=== PATIENT | female | born 1970 | race Caucasian/White ===

== ENCOUNTER 2017-06-28 22:00 | Observation (INO) ==
[2017-06-28] MEDS ORDERED: Aspirin 81 MG TAB.CHEW PO ONE (22:24)
--- NOTE | 2017-06-28 22:27 | Emergency Department Note ---
Disposition Clinical Impression: Elevated blood pressure reading Chest pain Qualifiers: Chest pain type: unspecified Qualified Code(s): R07.9 - Chest pain, unspecified Disposition: Admitted As Inpatient Referrals: Tabitha Archibald CNP [Primary Care Provider] - Forms: ED Satisfaction Letter, Work/School Release General Adult HPI - General Chief complaint: ED General Medical Stated complaint: High BP Time Seen by Provider: 06/28/17 22:14 Source: patient, family Mode of arrival: ambulatory Limitations: no limitations Nursing Notes Reviewed: Yes Vital Signs Reviewed: Yes - History of Present Illness HPI Narrative: Patient is a 38-year-old female with a history of chronic low back pain who presents to the emergency department for the second time in the past 12 hours for complaints of gradually worsening epigastric and substernal chest pain that she describes as a tightness sensation, shortness of breath and diaphoresis. Patient has no prior cardiac history or risk factors, no prior history of PE or DVT. Patient was seen and evaluated earlier for palpitations and shortness of breath and cheeks. After taking prednisone. EKG and chest x-ray were within normal limits at that time her symptoms had completely resolved on presentation to the ED and she states that on discharge she was feeling great until after dinner this evening when she began having epigastric and substernal pain. This is different than what she was experiencing earlier today. Patient with significantly elevated blood pressure on arrival on reevaluation at bedside patient's blood pressure in both arms was consistent and 160s over 100s. Patient is not diaphoretic here she is not in any respiratory distress lungs are clear. Pain Scale: 5 - Related Data Previous Rx's Medication Instructions Recorded Meclizine HCl [Verticalm] 25 mg PO TID #20 tablet 12/19/15 Ondansetron ODT [Zofran ODT] 4 mg SL Q6HR #15 tab.rapdis 12/19/15 Allergies Allergy/AdvReac Type Severity Reaction Status Date / Time No Known Allergies Allergy Verified 06/28/17 15:12 All systems ED: reviewed and negative except as stated. 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 - Social History Smoking Status: Former smoker Smokeless Tobacco Status: No Alcohol use: Reports: none Drug use: Reports: none Physical Exam - General Limitations: no limitations General appearance: alert, in no apparent distress - Head Head exam: atraumatic, normocephalic, normal inspection - Eye Eye exam: Present: normal appearance, EOMI - ENT ENT exam: normal exam, normal oropharynx, mucous membranes moist - Neck Neck exam: Present: normal inspection, full ROM - Chest Chest inspection: Present: normal inspection, symmetric chest wall rise - Respiratory Respiratory exam: Present: normal lung sounds bilaterally. Absent: respiratory distress, wheezes, stridor, accessory muscle use, prolonged expiratory phase - Cardiovascular Cardiovascular exam: Present: regular rate, normal rhythm, normal heart sounds - Abdominal Exam Abdominal exam: Present: soft, Non-Tender, normal bowel sounds - Extremities Exam Extremities exam: Present: normal inspection. Absent: pedal edema - Back Exam Back exam: Present: normal inspection. Absent: CVA tenderness (R), CVA tenderness (L) - Neurological Exam Neurological exam: Present: alert, oriented X3, CN II-XII intact, normal gait, reflexes normal. Absent: motor sensory deficit - Psychiatric Psychiatric exam: Present: normal affect, normal mood - Skin Skin exam: Present: warm, dry, intact, normal color. Absent: diaphoresis Course Course Narrative: She is a 38-year-old white female who presents to the emergency department complaining of chest pain. Patient received aspirin and nitroglycerin 2 with resolution of pain. One to nitro paste was placed on the patient's chest. Initial troponin is negative chest x-rays unremarkable. Patient is willing to stay for further cardiac evaluation. Case was discussed with hospitalist at 11: 50 PM who accepted the patient for admission for further evaluation and management. On reevaluation patient remains pain-free at this time with improvement of her blood pressure. Vital Signs Temperature 98.0 F 06/28/17 22:02 Pulse Rate 82 06/28/17 22:02 Respiratory Rate 18 06/28/17 22:02 Blood Pressure 205/138 06/28/17 22:02 O2 Sat by Pulse Oximetry 95 06/28/17 22:02 Temperature 98.0 F 06/28/17 22:02 Pulse Rate 82 06/28/17 23:10 Respiratory Rate 18 06/28/17 22:02 Blood Pressure 155/93 06/28/17 23:10 O2 Sat by Pulse Oximetry 95 06/28/17 23:10 Oxygen Delivery Oxygen Delivery Room Air Medical Decision Making - Medical Records Medical records reviewed: Yes I reviewed the patient's medical records. - Lab Data Lab results reviewed: Yes I reviewed the patient's lab results. Result diagrams: 06/28/17 22:34 06/28/17 22:34 Lab Results 06/28/17 06/28/17 06/28/17 Range/Units 22:24 22:24 22:24 WBC (4.3-11.1) K/mcL RBC (3.82-4.97) M/mcL Hgb (11.5-15.4) g/dL Hct (35.3-44.9) % MCV (83.0-100.0) fL MCH (28.0-33.3) pg MCHC (31.6-35.5) g/dL RDW (11.5-14.5) % Plt Count (140-400) K/mcL MPV (9.4-12.4) fL Immature Gran % (0-4) % Seg Neutrophils % % Lymphocytes % % Monocytes % % Eosinophils % % Basophils % % Neutrophils # (1.6-8.9) K/mcL Lymphocytes # (0.6-4.6) K/mcL Monocytes # (0.0-1.3) K/mcL Eosinophils # (0.0-0.6) K/mcL Basophils # (0.0-0.2) K/mcL PT 11.5 (9.4-12.1) Seconds INR 1.1 APTT 33.9 (26.0-36.0) Seconds D-Dimer < 215 (0-500) ng/mLFEU Sodium (136-145) mEq/L Potassium (3.5-5.1) mEq/L Chloride (98-107) mEq/L Carbon Dioxide (23-29) mEq/L BUN (6-20) mg/dL Creatinine (0.60-1.20) mg/dL Est GFR ( Amer) (> 60) Est GFR (Non-Af Amer) (> 60) BUN/Creatinine Ratio (6-26) Glucose (70-105) mg/dL Calculated Osmolality (280-300) Calcium (8.6-10.3) mg/dL Troponin I (< 0.04) ng/mL B-Natriuretic Peptide 12 (Less than 100) pg/mL Lipase 10 L (11-82) Units/L 06/28/17 06/28/17 Range/Units 22:34 22:34 WBC 12.6 H (4.3-11.1) K/mcL RBC 4.87 (3.82-4.97) M/mcL Hgb 13.7 (11.5-15.4) g/dL Hct 41.4 (35.3-44.9) % MCV 85.0 (83.0-100.0) fL MCH 28.1 (28.0-33.3) pg MCHC 33.1 (31.6-35.5) g/dL RDW 15.0 H (11.5-14.5) % Plt Count 364 (140-400) K/mcL MPV 9.3 L (9.4-12.4) fL Immature Gran % 0.6 (0-4) % Seg Neutrophils % 77.2 % Lymphocytes % 18.3 % Monocytes % 3.7 % Eosinophils % 0.0 % Basophils % 0.2 % Neutrophils # 9.7 H (1.6-8.9) K/mcL Lymphocytes # 2.3 (0.6-4.6) K/mcL Monocytes # 0.5 (0.0-1.3) K/mcL Eosinophils # 0.0 (0.0-0.6) K/mcL Basophils # 0.0 (0.0-0.2) K/mcL PT (9.4-12.1) Seconds INR APTT (26.0-36.0) Seconds D-Dimer (0-500) ng/mLFEU Sodium 135 L (136-145) mEq/L Potassium 4.3 (3.5-5.1) mEq/L Chloride 104 (98-107) mEq/L Carbon Dioxide 22 L (23-29) mEq/L BUN 14 (6-20) mg/dL Creatinine 0.66 (0.60-1.20) mg/dL Est GFR ( Amer) > 60 (> 60) Est GFR (Non-Af Amer) > 60 (> 60) BUN/Creatinine Ratio 21 (6-26) Glucose 228 H (70-105) mg/dL Calculated Osmolality 288 (280-300) Calcium 9.6 (8.6-10.3) mg/dL Troponin I < 0.03 (< 0.04) ng/mL B-Natriuretic Peptide (Less than 100) pg/mL Lipase (11-82) Units/L - Radiology Data Radiology results reviewed: Yes I reviewed the patient's radiology results. Chest X-Ray 06/28/17 22:24 IMPRESSION: No acute cardiopulmonary abnormality. D/ / Ivan Ma / Ivan Ma Interpreting Provider: Ivan Ma - EKG Data EKG #1 EKG attestation: Yes I reviewed and interpreted this EKG. EKG results narrative: EKG shows a normal sinus rhythm at 75 bpm with no acute ST or T-wave changes appreciated. This is unchanged from prior EKG earlier today.
[2017-06-28] MEDS: Nitroglycerin 0.4 MG TAB.SUBL SL ONE ×2 (23:02→23:11)
[2017-06-28 23:03] LABS: Basophils % 0.2 %; Hematocrit 41.4 % (35.3-44.9); Hemoglobin 13.7 g/dL (11.5-15.4); Immature Granulocytes % 0.6 % (0-4); Lymphocytes # 2.3 K/mcL (0.6-4.6); Lymphocytes % 18.3 %; Mean Corpuscular HGB Conc 33.1 g/dL (31.6-35.5); Mean Corpuscular Hemoglobin 28.1 pg (28.0-33.3); Mean Platelet Volume 9.3 fL (9.4-12.4); Monocytes # 0.5 K/mcL (0.0-1.3); Monocytes % 3.7 %; Neutrophils # 9.7 K/mcL (1.6-8.9); Platelet Count 364 K/mcL (140-400); Red Blood Count 4.87 M/mcL (3.82-4.97); Segmented Neutrophils % 77.2 %
[2017-06-28 23:09] LABS: INR 1.1; Prothrombin Time 11.5 Seconds (9.4-12.1)
[2017-06-28 23:12] LABS: Activated Partial Thrombo Time 33.9 Seconds (26.0-36.0)
[2017-06-28 23:23] LABS: BUN/Creatinine Ratio 21 (6-26); Blood Urea Nitrogen 14 mg/dL (6-20); Calcium 9.6 mg/dL (8.6-10.3); Carbon Dioxide 22 mEq/L (23-29); Chloride 104 mEq/L (98-107); Glucose 228 mg/dL (70-105); Osmolality,Calculated 288 (280-300); Potassium 4.3 mEq/L (3.5-5.1); Sodium 135 mEq/L (136-145); Troponin I < 0.03 ng/mL (< 0.04); eGFR For African Americans > 60 (> 60); eGFR For Non-African Americans > 60 (> 60)
[2017-06-28 23:33] LABS: D-Dimer < 215 ng/mLFEU (0-500)
[2017-06-29] MEDS ORDERED: Nitroglycerin 0.4 MG TAB.SUBL SL PRN (00:35)
[2017-06-29] MEDS ORDERED: Naloxone 0.4 MG/ML INJ IVP PRN (00:36)
--- NOTE | 2017-06-29 00:43 | Internal Med History&Physical ---
Date of Encounter: 06/29/17 Time of Encounter: 00:39 Internal Medicine - H&P: HPI Chief complaint: Chest pain Admitted From: Emergency Dept Plans for Post Hospital Care: Home History of present illness: Ms. Mahmood is a 46 year old female with history of chronic back pain for last year from a previous fall who presented with worsening substernal/epigastric pain associated with shortness of breath and diaphoresis. This was her second presentation to the ED today. Initially came earlier in the day and complained of similar symptoms with work up coming back unrevealing. She was recently put on prednisone for back pain which she has had in the past and after her first dose she started having those feelings. She says she was never on this high of a dose of 50 mg before, however, however her PCP who usually gives a course of low dose prednisone taper decided to give her a short course of a higher dose prednison for 3 days only. This was done because the patient usually get "grouchy" on the longer course of prednisone. She was started at 50 mg prednisone by her PCP this time. Earlier in the day she was told to stop the prednisone and discharged from the ED. She came back with worsening of the above symptoms. She describes her chest pain as pressure with no radiation. She was noted to have elevated BP in the ed of 205/138. This came down with SL nitroglycerin x2 and her CP improved. She has no h/o HTN. By the time I was evaluating the patient she told me she was chest pain-free and her back pain was not significant. Her blood pressure was still elevated follows in the room and repeat check of that showed a systolic blood pressure 188. She tells me that usually her blood pressure is elevated when she is in pain although not this high. She measures it at home occasionally and for the most part it is usually in the 130s to 140s systolically. EKG unremarkable. CXR normal. The patient is a former heavy smoker and quit about 3 years ago and used to smoke about 1-1/2 pack a day since she was 12. She also has a brother who of an MA at the age of 44. Denies fever, chills, headache, blurry vision, nausea, vomiting, abdominal pain, urinary symptoms, or neurological symptoms. Past Med Surg Social Fam HX - Past Medical History Medical history: thyroid disease, other Psychiatric history: no psych history - Social History Smoking Status: Former smoker Smokeless Tobacco Status: No Alcohol use: none Drug use: none Internal Medicine - H&P: Meds Baclofen [Lioresal] 10 mg PO TID 06/29/17 [History] Gabapentin [Neurontin] 200 mg PO TID 06/29/17 [History] 3 Allergy/AdvReac Type Severity Reaction Status Date / Time No Known Allergies Allergy Verified 06/28/17 15:12 All Systems PM: A 10-system review of systems was performed and is negative for pertinent findings except as documented above in the HPI. Review of systems: All systems reviewed are negative except for as mentioned above - Constitutional Vitals: Temp Pulse Resp BP Pulse Ox 98.0 F 82 18 155/93 95 06/28/17 22:02 06/28/17 23:10 06/28/17 22:02 06/28/17 23:10 06/28/17 23:10 Exam: GEN: NAD HEENT: AT, NC, No cyanosis, oral mucosa is moist, No JVD Lymphatics: No lymphadenoapthy Eyes: Extrocular muscles intact, anicteric CVS:RRR. S1, S2, No m/r/g RESP: CTAB ABD: Soft, NT, ND, +BS EXT: No edema, No rashes, 2+ DP NEURO: Nonfocal, CN II-XII intact, No focal motor or sensory deficits Psych: Cooperative, Not anxious or depressed Internal Med - H&P Results - Labs CBC & Chem 7: 06/28/17 22:34 06/28/17 22:34 Labs: Short CBC 06/28/17 Range/Units 22:34 WBC 12.6 H (4.3-11.1) K/mcL Hgb 13.7 (11.5-15.4) g/dL Hct 41.4 (35.3-44.9) % Plt Count 364 (140-400) K/mcL Neutrophils # 9.7 H (1.6-8.9) K/mcL BMP 06/28/17 22:34 Sodium 135 L Potassium 4.3 Chloride 104 Carbon Dioxide 22 L BUN 14 Creatinine 0.66 Glucose 228 H Calcium 9.6 Cardiac Enzymes 06/28/17 Range/Units 22:34 Troponin I < 0.03 (< 0.04) ng/mL - Impressions ITS Impressions Chest X-Ray 06/28/17 22:24 IMPRESSION: No acute cardiopulmonary abnormality. D/ / Ivan Ma / Ivan Ma Interpreting Provider: Ivan aM - Assessment and plan (1) Chest pain Current Visit: Yes Status: Acute Assessment and plan: The patient chest pain may have been secondary to elevated BP. She possibly has undiagnosed HTN. Both of those improved with SL nitro. Will trend cardiac enzymes. check lipid panel. A1C, TSH. Stress test in am. Telemetry. Given ASA 324 mg in ED Qualifiers: Chest pain type: unspecified Qualified Code(s): R07.9 - Chest pain, unspecified (2) Elevated blood pressure reading Current Visit: Yes Status: Acute Assessment and plan: Blood pressure is elevated in the 200 systolically on admission. This came down somewhat and now after SL nitro but still elevated. Start HCTZ 12.5 mg. Possibly new HTN although could be due to pain versus being on steroids but she only received 1 dose of prednisone 50 mg. Hydralazine IV ordered PRN. (3) Leukocytosis Current Visit: Yes Status: Acute Assessment and plan: Possibly from being on steroids . No signs of infection. No abx. Qualifiers: Leukocytosis type: unspecified Qualified Code(s): D72.829 - Elevated white blood cell count, unspecified (4) DVT prophylaxis Current Visit: Yes Status: Acute Assessment and plan: SCDs - Time Spent With Patient Total time spent is greater than 50% in coordination of care (as documented) at patient's floor/unit and/or counseling patient:
[2017-06-29] MEDS ORDERED: hydroCHLOROthiazide 25 MG TABLET PO SCH (01:00)
[2017-06-29 01:10] LABS: Chol/HDL Ratio 3.5 (0-4.9); Cholesterol 219 mg/dL (< 200); HDL Cholesterol 62 mg/dL (40-59); LDL Cholesterol,Calculated 123 mg/dL (0-99); Triglycerides 171 mg/dL (< 150)
[2017-06-29] MEDS ORDERED: Regadenoson 0.4 MG/5 ML SYRINGE IVP ONE (06:08)
[2017-06-29 11:09] LABS: Troponin I < 0.03 ng/mL (< 0.04)
[2017-06-29 11:22] LABS: Estimated Average Glucose 174 mg/dl; Hemoglobin A1C 7.7 %
[2017-06-29] MEDS: Baclofen 10 MG TABLET PO SCH ×2 (11:30→13:21)
[2017-06-29] MEDS: Acetaminophen 325 MG TABLET PO PRN ×2 (11:34→17:33)
[2017-06-29] MEDS: Gabapentin 100 MG CAPSULE PO SCH ×2 (11:35→14:50)
[2017-06-29 13:24] LABS: Triiodothyronine (T3) Free 3.48 pg/mL (2.50-3.90)
[2017-06-29 13:28] LABS: Triiodothyronine (T3) Total 0.86 ng/mL (0.87-1.78)
--- NOTE | 2017-06-29 14:10 | Event Note ---
Date of Encounter: 06/29/17 Time of Encounter: 14:10 Patient is a 46y/o female with PMH of thyroid disease, chronic back pain who was admitted for management of chest pain, and elevated BP. She was found to have leukocytosis but reported of being on PO Prednisone. Denies any dysuria, fever, or chills Pt was seen and examined with present at bedside. Pt denies of any chest pain or having history of hypertension. She reports of being compliant with her home medications however noted to have thyroid studies consistent with not appropriately controlled hypothyroidism. Pt also found to have HbA1C of 7.7 and is found to be a new diagnosis of diabetes Will start home dose of levothyroxine once verified f/u 2D echo sliding scale insulin algorithm, ADA diet, monitor FS and BG increased to HCTZ 25mg PO qd Hydralazine 10mg IV q6h PRN SBP>160 stress test negative for ischemic perfusion defect will closely monitor labs and vitals
[2017-06-29] MEDS ORDERED: *HR* Dextrose 50 % in Water (Syg) 50 ML SYRINGE IVP PRN (14:19)
[2017-06-29] MEDS ORDERED: Dextrose Gel 15 GM/37.5 ML TUBE PO PRN ×2 (14:19)
[2017-06-29] MEDS ORDERED: D5% in Water 1,000 ML IVC PRN (14:19)
[2017-06-29] MEDS ORDERED: hydroCHLOROthiazide 25 MG TABLET PO ONE (14:19)
[2017-06-29] MEDS: Insulin LISPRO 300 UNITS/3 ML VIAL SQ SCH (17:33)
[2017-06-29] MEDS: Ondansetron 4 MG/2 ML VIAL IVP PRN ×2 (17:33→22:43)
[2017-06-29] MEDS: *HR* Heparin 5,000 UNIT/ML VIAL SQ SCH (17:34)
[2017-06-29] MEDS ORDERED: Insulin LISPRO 300 UNITS/3 ML VIAL SQ SCH (21:00)
[2017-06-29] MEDS ORDERED: Ketorolac 15 MG/ML VIAL IVP ONE (22:30)
[2017-06-30] MEDS: Gabapentin 100 MG CAPSULE PO SCH ×2 (01:05→08:14)
[2017-06-30] MEDS: Baclofen 10 MG TABLET PO SCH ×2 (01:05→08:14)
[2017-06-30 01:32] LABS: Basophils % 0.2 %; Eosinophils % 0.3 %; Hematocrit 43.5 % (35.3-44.9); Hemoglobin 14.4 g/dL (11.5-15.4); Immature Granulocytes % 0.5 % (0-4); Lymphocytes # 3.2 K/mcL (0.6-4.6); Lymphocytes % 26.6 %; Mean Corpuscular HGB Conc 33.1 g/dL (31.6-35.5); Mean Corpuscular Hemoglobin 28.1 pg (28.0-33.3); Mean Corpuscular Volume 84.8 fL (83.0-100.0); Mean Platelet Volume 9.5 fL (9.4-12.4); Monocytes # 0.8 K/mcL (0.0-1.3); Monocytes % 6.4 %; Neutrophils # 7.9 K/mcL (1.6-8.9); Platelet Count 390 K/mcL (140-400); Red Blood Count 5.13 M/mcL (3.82-4.97); Red Cell Distribution Width 15.5 % (11.5-14.5)
[2017-06-30 02:27] LABS: BUN/Creatinine Ratio 19 (6-26); Blood Urea Nitrogen 14 mg/dL (6-20); Calcium 9.5 mg/dL (8.6-10.3); Carbon Dioxide 24 mEq/L (23-29); Chloride 101 mEq/L (98-107); Glucose 158 mg/dL (70-105); Magnesium 2.3 mg/dL (1.6-2.6); Osmolality,Calculated 284 (280-300); Potassium 3.8 mEq/L (3.5-5.1); Sodium 135 mEq/L (136-145); eGFR For African Americans > 60 (> 60); eGFR For Non-African Americans > 60 (> 60)
[2017-06-30] MEDS: Ondansetron 4 MG/2 ML VIAL IVP PRN (05:12)
[2017-06-30] MEDS: Acetaminophen 325 MG TABLET PO PRN ×2 (05:12→13:14)
[2017-06-30] MEDS: *HR* Heparin 5,000 UNIT/ML VIAL SQ SCH (05:13)
[2017-06-30] MEDS ORDERED: Levothyroxine 25 MCG TABLET PO SCH (06:30)
[2017-06-30] MEDS: Insulin LISPRO 300 UNITS/3 ML VIAL SQ SCH ×2 (08:16→11:09)
[2017-06-30] MEDS ORDERED: hydroCHLOROthiazide 25 MG TABLET PO SCH (09:00)
[2017-06-30 11:22] VITALS: BP 138/80
--- NOTE | 2017-06-30 13:14 | Discharge Summary ---
- NOTES TO OUTPATIENT PROVIDER Notes to Outpatient Provider: Pt was diagnosed with DM and HTN during this hospitalization. She is started on Metformin 500mg twice a day and HCTZ 25mg qd , Lisinopril 5mg PO Qd for hypertension. Please adjust medications as needed. Please adjust pt's levothyroxine dose given her thyroid function tests (TSH >9) Orders not resulted at time of discharge: Pending orders 06/29/17 08:00 NM jarrod perf SPECT multi [NM] Routine 06/29/17 08:46 Urinalysis Reflex Cult & Micro [URIN] Stat Date of Encounter: 06/30/17 Time of Encounter: 13:11 - Discharge Diagnosis (1) Chest pain Priority: Primary Status: Resolved Qualifiers: Chest pain type: unspecified Qualified Code(s): R07.9 - Chest pain, unspecified (2) Elevated blood pressure reading Priority: Primary Status: Acute (3) DVT prophylaxis Priority: Secondary Status: Acute (4) Leukocytosis Priority: Secondary Status: Acute Qualifiers: Leukocytosis type: unspecified Qualified Code(s): D72.829 - Elevated white blood cell count, unspecified (5) Diabetes mellitus Priority: Secondary Status: Acute Qualifiers: Diabetes mellitus type: type 2 Diabetes mellitus 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 Mahmood is a 46 year old female with PMH Of hypothyroidism who was admitted for management of chest pain and was found to have elevated BP and DM. She underwent nuclear stress test that was negative for any ischemic perfusion defect. She was started on HCTZ/Lisinopril for BP control. She was started on sliding scale insulin algorithm and diabetic education was provided. Pt currently reports of resolution of her chest pain and is medically stable for discharge. She will be discharged to home with antihypertensive medications along with Metformin. She is to follow up with PCP after discharge. Pt demonstrates understanding of her diagnosis and agrees with [facility] discharge care and plan. She was taught how to check her fingerstick glucose at home and demonstrates understanding. Discharge discussed with: patient, nurse - Time Spent with Patient Total time spent providing and/or coordinating discharge services: Greater than 30 minutes - Discharge Medications Prescriptions: metFORMIN [Glucophage] 500 mg PO BIDWM #60 tablet Home Medications: Baclofen [Lioresal] 10 mg PO TID 06/29/17 [History] Gabapentin [Neurontin] 200 mg PO TID 06/29/17 [History] Levothyroxine Sodium 100 mcg PO DAILY 06/29/17 [History] Meloxicam 15 mg PO DAILY 06/29/17 [History] predniSONE [Prednisone] 50 mg PO DAILY 06/29/17 [History] Lisinopril [Zestril] 5 mg PO DAILY tablet 06/30/17 [Rx] hydroCHLOROthiazide [Hydrochlorothiazide] 25 mg PO DAILY tablet 06/30/17 [Rx] metFORMIN [Glucophage] 500 mg PO BIDWM #60 tablet 06/30/17 [Rx] Allergies/Adverse Reactions: 3 Allergy/AdvReac Type Severity Reaction Status Date / Time No Known Allergies Allergy Verified 06/28/17 15:12 Date of admission: 06/29/17 00:35 Primary care physician: Tabitha Archibald CNP Discharging clinician: Angely Bhatt Anticipated date of discharge: 06/30/17 - Constitutional Vitals: Temp Pulse Resp BP Pulse Ox 97.8 F 79 17 138/80 97 06/30/17 11:04 06/30/17 11:04 06/30/17 11:04 06/30/17 11:22 06/30/17 11:04 General appearance: Present: A&O X 3, no acute distress, obese - Head Head exam: Present: atraumatic, normocephalic - Eye Eye exam: Present: conjuntiva pink, sclera anicteric - Respiratory Respiratory exam: Present: CTAB. Absent: respiratory distress, wheezes, tachypnea - Cardiovascular Cardiovascular exam: Present: RRR, +S1, +S2. Absent: diastolic murmur, gallop, rubs, systolic murmur - GI/Abdominal GI/Abdominal exam: Present: normal bowel sounds, soft, no peritoneal signs. Absent: distended, tenderness - Neurological Exam Neurological exam: Present: oriented X3 - Psychiatric Psychiatric exam: Present: normal affect, normal mood - Patient Status Disposition: Home, Self-Care Condition: Good Functional capacity at discharge: independent ambulation Overall status at discharge: patient is back to baseline - Discharge Instructions Instructions: How to Check Your Blood Sugar (DC), Diabetes Mellitus Type 2 in Adults (DC), Meal Planning with Diabetes Exchanges (DC) Follow Up With: Tabitha Archibald CNP [Primary Care Provider] - (web request sent on 06/29/17) Additional Instructions: Please follow up with your primary care physician within five days after your discharge from the hospital. Your home medications have been changed as follows: 1. Lisinopril 5mg once a day has been added 2. Hydrochlorothiazide 25mg once a day has been added 3. Metformin 500mg twice a day Please closely monitor your blood pressure at home. Please check your fingerstick glucose at home (three times a day and take these logs with you to your pcp;s appointment, check fingerstick fasting in the morning, once two hours after a meal ,and before bedtime) Please ask your PCP about adjusting your thyroid medication given your thyroid function tests. Resume all other home medications as prescribed by your primary care physician. All your prescriptions have been called to [facility] on [facility] including glucometer, lancets, test strips, alcohol pads. - Diet and Activity Activity: resume usual activities as tolerated Diet: diabetic diet, low fat, low cholesterol
--- NOTE | 2017-06-30 13:25 | Electrocardiograph Report ---
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
[2017-06-30] MEDS ORDERED: hydroCHLOROthiazide 25 MG TABLET PO ONE (13:58)
== END 2017-06-30 14:24 | disposition home or self-care (01) ==
LOC: EMEROO 22:00 → 2ANU 22:00
PROVIDERS: ADMIT Family Medicine; ATTEND Internal Medicine

== ENCOUNTER 2017-07-02 08:41 | Inpatient (IN) ==
[2017-07-02] MEDS ORDERED: 0.9 % Sodium Chloride 500 ML IVC ONE (09:01)
--- NOTE | 2017-07-02 09:05 | Emergency Department Note ---
Disposition Clinical Impression: Unstable angina, Acute electrocardiogram changes Disposition: Admitted As Inpatient Condition: Fair Referrals: Tabitha Archibald CNP [Primary Care Provider] - Forms: ED Satisfaction Letter Time of Disposition: 11:51 Chest Pain HPI - General Chief Complaint: ED Shortness of Breath/Dyspnea Stated Complaint: TAD Time Seen by Provider: 07/02/17 09:00 Source: patient Mode of arrival: wheelchair Limitations: no limitations Vital Signs Reviewed: Yes Nursing Notes Reviewed: Yes - History of Present Illness HPI Narrative: Patient presents to the ED with a chief complaint of chest pain. Patient has a newly diagnosed diabetic. As of this weekend and was admitted and started on metformin and hydrochlorothiazide for hypertension. States that she went home 2 days ago and started feeling unwell last night with some chest pressure and heaviness that in her central chest, nonradiating. No diaphoresis , but she has been having chills. No fever. States that she feels very anxious. Some nausea but no vomiting. Denying any abdominal pain, but states that the pressure is in her epigastrium and pushing into her chest. No back pain, numbness or weakness in her extremities. No fever. Severity scale (1-10): 4 - Related Data Home Medications Medication Instructions Recorded Confirmed Baclofen [Lioresal] 10 mg PO TID 06/29/17 07/02/17 Gabapentin [Neurontin] 200 mg PO TID 06/29/17 07/02/17 Levothyroxine Sodium 100 mcg PO DAILY 06/29/17 07/02/17 Previous Rx's Medication Instructions Recorded Lisinopril [Zestril] 5 mg PO DAILY tablet 06/30/17 hydroCHLOROthiazide 25 mg PO DAILY tablet 06/30/17 [Hydrochlorothiazide] metFORMIN [Glucophage] 500 mg PO BIDWM #60 tablet 06/30/17 Allergies Allergy/AdvReac Type Severity Reaction Status Date / Time No Known Allergies Allergy Verified 07/02/17 09:28 Review of Systems: As reviewed in my history of present illness, otherwise negative Constitutional: Reports: as per HPI Eyes: Reports: as per HPI ENT ED: Reports: as per HPI Chest Pain PMH - Past Medical History Medical history: Reports: thyroid disease, other Psychiatric history: Reports: no psych history 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 - Social History Smoking Status: Former smoker Alcohol use: Reports: none Drug use: Reports: none Physical Exam - General Limitations: no limitations General appearance: alert, in no apparent distress, anxious - Head Head exam: atraumatic, normocephalic, normal inspection - Eye Eye exam: Present: normal appearance, PERRL, EOMI - ENT ENT exam: normal exam, normal oropharynx, mucous membranes moist - Respiratory Respiratory exam: Present: normal lung sounds bilaterally - Cardiovascular Cardiovascular exam: Present: normal rhythm, tachycardia, normal heart sounds - Abdominal Exam Abdominal exam: Present: soft, Non-Tender. Absent: tenderness, distention, guarding, rebound, rigidity - Extremities Exam Extremities exam: Present: normal inspection, full ROM, normal capillary refill. Absent: tenderness, pedal edema - Neurological Exam Neurological exam: Present: alert, oriented X3 - Psychiatric Psychiatric exam: Present: anxious - Skin Skin exam: Present: warm, dry, intact, normal color Course - Reevaluation(s) Reevaluation #1: Admitted to the hospital service. CTA was negative for PE. Patient is chest pain-free at this time, but due to her EKG changes, we will go and start her on a heparin drip for unstable angina. Patient will likely get a heart catheter later today. Time: 11:50 - Consultations Consultation #1: I spoke with the on-call sales utility representative, Dr. France. We reviewed the EKG together over the phone. After faxing it to him and he did not think that this met STEMI criteria. However, he was concerned, as we are that she is having significant EKG changes. Recommended starting cardiac workup. She has no contraindications to heparinization, so we will start that as well. After we get a chest x-ray. Patient will be admitted to the hospital. If her pain changes at all or she becomes unstable. We will repeat EKG and likely activate the catheter lab. Time: 09:03 Vital Signs Temperature 97.6 F 07/02/17 08:42 Pulse Rate 110 07/02/17 08:42 Respiratory Rate 16 07/02/17 08:42 Blood Pressure 134/93 07/02/17 08:42 O2 Sat by Pulse Oximetry 96 07/02/17 08:42 Temperature 97.6 F 07/02/17 08:42 Pulse Rate 86 07/02/17 11:09 Respiratory Rate 16 07/02/17 11:09 Blood Pressure 151/99 07/02/17 11:09 O2 Sat by Pulse Oximetry 97 07/02/17 11:09 Oxygen Delivery Oxygen Delivery Room Air Chest Pain - Medical Records Medical records reviewed: Yes I reviewed the patient's medical records. - Lab Data Lab results reviewed: Yes I reviewed the patient's lab results. Result diagrams: 07/02/17 09:25 07/02/17 09:25 Lab Results 07/02/17 07/02/17 07/02/17 Range/Units 09:25 09:25 09:25 WBC 11.1 (4.3-11.1) K/mcL RBC 5.66 H (3.82-4.97) M/mcL Hgb 15.6 H (11.5-15.4) g/dL Hct 46.6 H (35.3-44.9) % MCV 82.3 L (83.0-100.0) fL MCH 27.6 L (28.0-33.3) pg MCHC 33.5 (31.6-35.5) g/dL RDW 14.7 H (11.5-14.5) % Plt Count 420 H (140-400) K/mcL MPV 9.3 L (9.4-12.4) fL Immature Gran % 0.4 (0-4) % Seg Neutrophils % 59.8 % Lymphocytes % 32.3 % Monocytes % 6.9 % Eosinophils % 0.3 % Basophils % 0.3 % Neutrophils # 6.7 (1.6-8.9) K/mcL Lymphocytes # 3.6 (0.6-4.6) K/mcL Monocytes # 0.8 (0.0-1.3) K/mcL Eosinophils # 0.0 (0.0-0.6) K/mcL Basophils # 0.0 (0.0-0.2) K/mcL PT 12.6 H (9.4-12.1) Seconds INR 1.2 APTT 34.0 (26.0-36.0) Seconds Sodium (136-145) mEq/L Potassium (3.5-5.1) mEq/L Chloride (98-107) mEq/L Carbon Dioxide (23-29) mEq/L BUN (6-20) mg/dL Creatinine (0.60-1.20) mg/dL Est GFR ( Amer) (> 60) Est GFR (Non-Af Amer) (> 60) BUN/Creatinine Ratio (6-26) Glucose (70-105) mg/dL Calculated Osmolality (280-300) Calcium (8.6-10.3) mg/dL Troponin I (< 0.04) ng/mL B-Natriuretic Peptide 7 (Less than 100) pg/mL Urine Color (Yellow) Urine Clarity (Clear) Urine pH (5.0-8.0) pH Units Ur Specific [place] (1.010-1.025) Urine Protein (Neg-Trace) mg/dL Urine Glucose (UA) (Normal) mg/dL Urine Ketones (Negative) mg/dL Urine Blood (Negative) Urine Nitrite (Negative) Urine Bilirubin (Negative) Urine Urobilinogen (Normal) mg/dL Ur Leukocyte Esterase (Negative) Urine Microscopic RBC (0-3) per hpf Urine Microscopic WBC (0-3) per hpf Ur Squamous Epith Cells (None-Few) per lpf Urine Bacteria (None-Few) per hpf Hyaline Casts (None-Few) per lpf Ur Culture Indicated? (NO) Urine Test (Negative) 07/02/17 07/02/17 07/02/17 Range/Units 09:25 09:38 09:38 WBC (4.3-11.1) K/mcL RBC (3.82-4.97) M/mcL Hgb (11.5-15.4) g/dL Hct (35.3-44.9) % MCV (83.0-100.0) fL MCH (28.0-33.3) pg MCHC (31.6-35.5) g/dL RDW (11.5-14.5) % Plt Count (140-400) K/mcL MPV (9.4-12.4) fL Immature Gran % (0-4) % Seg Neutrophils % % Lymphocytes % % Monocytes % % Eosinophils % % Basophils % % Neutrophils # (1.6-8.9) K/mcL Lymphocytes # (0.6-4.6) K/mcL Monocytes # (0.0-1.3) K/mcL Eosinophils # (0.0-0.6) K/mcL Basophils # (0.0-0.2) K/mcL PT (9.4-12.1) Seconds INR APTT (26.0-36.0) Seconds Sodium 130 L (136-145) mEq/L Potassium 3.5 (3.5-5.1) mEq/L Chloride 96 L (98-107) mEq/L Carbon Dioxide 21 L (23-29) mEq/L BUN 24 H (6-20) mg/dL Creatinine 0.74 (0.60-1.20) mg/dL Est GFR ( Amer) > 60 (> 60) Est GFR (Non-Af Amer) > 60 (> 60) BUN/Creatinine Ratio 32 H (6-26) Glucose 165 H (70-105) mg/dL Calculated Osmolality 278 L (280-300) Calcium 9.9 (8.6-10.3) mg/dL Troponin I < 0.03 (< 0.04) ng/mL B-Natriuretic Peptide (Less than 100) pg/mL Urine Color Yellow (Yellow) Urine Clarity Clear (Clear) Urine pH 6.0 (5.0-8.0) pH Units Ur Specific [place] 1.019 (1.010-1.025) Urine Protein Trace (Neg-Trace) mg/dL Urine Glucose (UA) Normal (Normal) mg/dL Urine Ketones 15 H (Negative) mg/dL Urine Blood Trace H (Negative) Urine Nitrite Negative (Negative) Urine Bilirubin Negative (Negative) Urine Urobilinogen Normal (Normal) mg/dL Ur Leukocyte Esterase Negative (Negative) Urine Microscopic RBC 0-3 (0-3) per hpf Urine Microscopic WBC 0-3 (0-3) per hpf Ur Squamous Epith Cells Many H (None-Few) per lpf Urine Bacteria None Seen (None-Few) per hpf Hyaline Casts None Seen (None-Few) per lpf Ur Culture Indicated? NO (NO) Urine Test Negative (Negative) - Radiology Data Radiology results reviewed: Yes I reviewed the patient's radiology results. - EKG Data EKG attestation: Yes I reviewed and interpreted this EKG. EKG results narrative: Sinus rhythm, rate 100, DE interval 344, QRS 105, QTC 403, normal axis, [address] segment elevation in aVR, ST segment depression in lead 2, 3, mildly in V3, V4, V5 and V6. Does not meet STEMI criteria at this time, but will page sales utility representative Critical Care Time Critical Care Time: Yes Attestation: I personally spent ___30___ minutes devoted to the care of this critically ill patient. This time excludes the time for billable procedures.
[2017-07-02 09:36] LABS: Basophils % 0.3 %; Eosinophils % 0.3 %; Hematocrit 46.6 % (35.3-44.9); Hemoglobin 15.6 g/dL (11.5-15.4); Immature Granulocytes % 0.4 % (0-4); Lymphocytes # 3.6 K/mcL (0.6-4.6); Lymphocytes % 32.3 %; Mean Corpuscular HGB Conc 33.5 g/dL (31.6-35.5); Mean Corpuscular Hemoglobin 27.6 pg (28.0-33.3); Mean Corpuscular Volume 82.3 fL (83.0-100.0); Mean Platelet Volume 9.3 fL (9.4-12.4); Monocytes # 0.8 K/mcL (0.0-1.3); Monocytes % 6.9 %; Neutrophils # 6.7 K/mcL (1.6-8.9); Platelet Count 420 K/mcL (140-400); Red Blood Count 5.66 M/mcL (3.82-4.97); Red Cell Distribution Width 14.7 % (11.5-14.5); Segmented Neutrophils % 59.8 %
[2017-07-02 09:41] LABS: INR 1.2; Prothrombin Time 12.6 Seconds (9.4-12.1)
[2017-07-02 09:52] LABS: Bilirubin,Urine Negative (Negative); Blood,Urine Trace (Negative); Clarity,Urine Clear (Clear); Color,Urine Yellow (Yellow); Glucose,Urine (UA) Normal (Normal); Ketones,Urine 15 mg/dL (Negative); Leukocyte Esterase,Urine Negative (Negative); Nitrite,Urine Negative (Negative); Protein,Urine Trace mg/dL (Neg-Trace); Specific Gravity,Urine 1.019 (1.010-1.025); Urobilinogen,Urine Normal (Normal)
[2017-07-02 09:54] LABS: Bacteria,Urine None Seen per hpf (None-Few); Hyaline Casts,Urine None Seen per lpf (None-Few); RBC,Urine 0-3 per hpf (0-3); Squamous Epithelial Cell,Urine Many per lpf (None-Few); WBC,Urine 0-3 per hpf (0-3)
[2017-07-02 09:58] LABS: Troponin I < 0.03 ng/mL (< 0.04)
[2017-07-02 10:08] LABS: BUN/Creatinine Ratio 32 (6-26); Blood Urea Nitrogen 24 mg/dL (6-20); Calcium 9.9 mg/dL (8.6-10.3); Carbon Dioxide 21 mEq/L (23-29); Chloride 96 mEq/L (98-107); Glucose 165 mg/dL (70-105); Osmolality,Calculated 278 (280-300); Potassium 3.5 mEq/L (3.5-5.1); Sodium 130 mEq/L (136-145); eGFR For African Americans > 60 (> 60); eGFR For Non-African Americans > 60 (> 60)
[2017-07-02] MEDS ORDERED: ISOVUE-370 200 ML INFUS..BTL IV ONE ×4 (10:30→15:30)
[2017-07-02] MEDS ORDERED: Heparin 1,000 UNITS/500 mL 500 ML ONE ×2 (10:30→12:54)
[2017-07-02] MEDS ORDERED: 0.9 % Sodium Chloride 1,000 ML ONE ×3 (10:30→13:28)
[2017-07-02] MEDS ORDERED: Nitroglycerin 1,000 MCG/10 ML VIAL IV ONE ×2 (10:30→12:56)
[2017-07-02] MEDS ORDERED: *HR* Heparin 10,000 UNIT/10 ML VIAL ONE ×2 (10:30→12:55)
[2017-07-02] MEDS ORDERED: *HR* LORazepam 2 MG/ML VIAL IVP ONE (10:35)
--- NOTE | 2017-07-02 11:51 | Emergency Department Note ---
Disposition Clinical Impression: Unstable angina, Acute electrocardiogram changes Disposition: Admitted As Inpatient Condition: Fair General Adult HPI - General Chief complaint: ED Shortness of Breath/Dyspnea Stated complaint: TAD Time Seen by Provider: 07/02/17 09:00 Source: patient Mode of arrival: wheelchair Limitations: no limitations Nursing Notes Reviewed: Yes Vital Signs Reviewed: Yes - History of Present Illness Pain Scale: 4 - Related Data Home Medications Medication Instructions Recorded Confirmed Baclofen [Lioresal] 10 mg PO TID 06/29/17 07/02/17 Gabapentin [Neurontin] 200 mg PO TID 06/29/17 07/02/17 Levothyroxine Sodium 100 mcg PO DAILY 06/29/17 07/02/17 Previous Rx's Medication Instructions Recorded Lisinopril [Zestril] 5 mg PO DAILY tablet 06/30/17 hydroCHLOROthiazide 25 mg PO DAILY tablet 06/30/17 [Hydrochlorothiazide] metFORMIN [Glucophage] 500 mg PO BIDWM #60 tablet 06/30/17 Allergies Allergy/AdvReac Type Severity Reaction Status Date / Time No Known Allergies Allergy Verified 07/02/17 09:28 Constitutional: Reports: as per HPI Eyes: Reports: as per HPI ENT ED: Reports: as per HPI Past Medical History - Past Medical History Medical history: Reports: thyroid disease, other Psychiatric history: Reports: no psych history 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 - Social History Smoking Status: Former smoker Smokeless Tobacco Status: No Alcohol use: Reports: none Drug use: Reports: none Physical Exam - General Limitations: no limitations General appearance: alert, in no apparent distress, anxious Course Vital Signs Temperature 97.6 F 07/02/17 08:42 Pulse Rate 110 07/02/17 08:42 Respiratory Rate 16 07/02/17 08:42 Blood Pressure 134/93 07/02/17 08:42 O2 Sat by Pulse Oximetry 96 07/02/17 08:42 Temperature 97.6 F 07/02/17 08:42 Pulse Rate 78 07/02/17 16:17 Respiratory Rate 18 07/02/17 16:17 Blood Pressure 129/109 07/02/17 16:17 O2 Sat by Pulse Oximetry 97 07/02/17 16:17 Oxygen Delivery Oxygen Delivery Room Air Medical Decision Making - Lab Data Result diagrams: 07/02/17 09:25 07/02/17 09:25 Lab Results 07/02/17 07/02/17 07/02/17 Range/Units 09:25 09:25 09:25 WBC 11.1 (4.3-11.1) K/mcL RBC 5.66 H (3.82-4.97) M/mcL Hgb 15.6 H (11.5-15.4) g/dL Hct 46.6 H (35.3-44.9) % MCV 82.3 L (83.0-100.0) fL MCH 27.6 L (28.0-33.3) pg MCHC 33.5 (31.6-35.5) g/dL RDW 14.7 H (11.5-14.5) % Plt Count 420 H (140-400) K/mcL MPV 9.3 L (9.4-12.4) fL Immature Gran % 0.4 (0-4) % Seg Neutrophils % 59.8 % Lymphocytes % 32.3 % Monocytes % 6.9 % Eosinophils % 0.3 % Basophils % 0.3 % Neutrophils # 6.7 (1.6-8.9) K/mcL Lymphocytes # 3.6 (0.6-4.6) K/mcL Monocytes # 0.8 (0.0-1.3) K/mcL Eosinophils # 0.0 (0.0-0.6) K/mcL Basophils # 0.0 (0.0-0.2) K/mcL PT 12.6 H (9.4-12.1) Seconds INR 1.2 APTT 34.0 (26.0-36.0) Seconds Sodium (136-145) mEq/L Potassium (3.5-5.1) mEq/L Chloride (98-107) mEq/L Carbon Dioxide (23-29) mEq/L BUN (6-20) mg/dL Creatinine (0.60-1.20) mg/dL Est GFR ( Amer) (> 60) Est GFR (Non-Af Amer) (> 60) BUN/Creatinine Ratio (6-26) Glucose (70-105) mg/dL Calculated Osmolality (280-300) Calcium (8.6-10.3) mg/dL Troponin I (< 0.04) ng/mL B-Natriuretic Peptide 7 (Less than 100) pg/mL Urine Color (Yellow) Urine Clarity (Clear) Urine pH (5.0-8.0) pH Units Ur Specific [place] (1.010-1.025) Urine Protein (Neg-Trace) mg/dL Urine Glucose (UA) (Normal) mg/dL Urine Ketones (Negative) mg/dL Urine Blood (Negative) Urine Nitrite (Negative) Urine Bilirubin (Negative) Urine Urobilinogen (Normal) mg/dL Ur Leukocyte Esterase (Negative) Urine Microscopic RBC (0-3) per hpf Urine Microscopic WBC (0-3) per hpf Ur Squamous Epith Cells (None-Few) per lpf Urine Bacteria (None-Few) per hpf Hyaline Casts (None-Few) per lpf Ur Culture Indicated? (NO) Urine Test (Negative) 07/02/17 07/02/17 07/02/17 Range/Units 09:25 09:38 09:38 WBC (4.3-11.1) K/mcL RBC (3.82-4.97) M/mcL Hgb (11.5-15.4) g/dL Hct (35.3-44.9) % MCV (83.0-100.0) fL MCH (28.0-33.3) pg MCHC (31.6-35.5) g/dL RDW (11.5-14.5) % Plt Count (140-400) K/mcL MPV (9.4-12.4) fL Immature Gran % (0-4) % Seg Neutrophils % % Lymphocytes % % Monocytes % % Eosinophils % % Basophils % % Neutrophils # (1.6-8.9) K/mcL Lymphocytes # (0.6-4.6) K/mcL Monocytes # (0.0-1.3) K/mcL Eosinophils # (0.0-0.6) K/mcL Basophils # (0.0-0.2) K/mcL PT (9.4-12.1) Seconds INR APTT (26.0-36.0) Seconds Sodium 130 L (136-145) mEq/L Potassium 3.5 (3.5-5.1) mEq/L Chloride 96 L (98-107) mEq/L Carbon Dioxide 21 L (23-29) mEq/L BUN 24 H (6-20) mg/dL Creatinine 0.74 (0.60-1.20) mg/dL Est GFR ( Amer) > 60 (> 60) Est GFR (Non-Af Amer) > 60 (> 60) BUN/Creatinine Ratio 32 H (6-26) Glucose 165 H (70-105) mg/dL Calculated Osmolality 278 L (280-300) Calcium 9.9 (8.6-10.3) mg/dL Troponin I < 0.03 (< 0.04) ng/mL B-Natriuretic Peptide (Less than 100) pg/mL Urine Color Yellow (Yellow) Urine Clarity Clear (Clear) Urine pH 6.0 (5.0-8.0) pH Units Ur Specific [place] 1.019 (1.010-1.025) Urine Protein Trace (Neg-Trace) mg/dL Urine Glucose (UA) Normal (Normal) mg/dL Urine Ketones 15 H (Negative) mg/dL Urine Blood Trace H (Negative) Urine Nitrite Negative (Negative) Urine Bilirubin Negative (Negative) Urine Urobilinogen Normal (Normal) mg/dL Ur Leukocyte Esterase Negative (Negative) Urine Microscopic RBC 0-3 (0-3) per hpf Urine Microscopic WBC 0-3 (0-3) per hpf Ur Squamous Epith Cells Many H (None-Few) per lpf Urine Bacteria None Seen (None-Few) per hpf Hyaline Casts None Seen (None-Few) per lpf Ur Culture Indicated? NO (NO) Urine Test Negative (Negative) Attestation Statement - Attestation Attestation: I, Robert Hill, examined this patient and my medical decision-making was reviewed with the INTERNET APPLICATION DEVELOPER/PA/Advanced Practice Nurse/Resident Physician. I agree with the documented findings, disposition and treatment plan as described except to the extent set forth below. 46-year-old female presents emergency Department with concerns of acute onset chest pain. Patient states she has pressure in the center of her chest. She states the symptoms started within the past 24 hours and kept her up throughout the night. Patient states the pain is mild in the emergency department today. Her initial EKG was very concerning for a possible STEMI with elevation and AVR and depressions in the lateral leads. The interventionalist, Dr. France, was contacted after the initial evaluation, he reviewed the EKG after a discussion of the case and presentation and recommended to continue with workup for heart disease however she did not meet STEMI requirements. Initial troponin was negative. Patient's pain did not worsen. Dr. France evaluated the patient in the emergency department and recommended starting the patient on heparin however he will likely take the patient to the catheter lab later in the day. Patient vital signs stable prior to departure.
[2017-07-02] MEDS ORDERED: *HR* Heparin 5,000 UNIT/ML VIAL IVP ONE (11:53)
[2017-07-02] MEDS ORDERED: Aspirin 325 MG TABLET PO ONE (11:54)
[2017-07-02] MEDS ORDERED: Heparin 25,000 UNIT/500 ML D5W 25,000 UNIT/500 ML BAG IVC SCH (12:00)
--- NOTE | 2017-07-02 12:39 | Pre-Sedation Evaluation ---
Pre-sedation evaluation - Pre-sedation checklist Date of procedure: 07/02/17 Procedure: LHC Recent Vitals: Last Vital Signs Temp 97.6 F 07/02/17 08:42 Pulse 86 07/02/17 11:09 Resp 16 07/02/17 11:09 BP 151/99 07/02/17 11:09 Pulse Ox 97 07/02/17 11:09 ASA Classification *see protocol: CLASS II-Mild systemic disease
--- NOTE | 2017-07-02 12:49 | Cardiology Consult Note ---
Date of Encounter: 07/02/17 Time of Encounter: 12:47 Assessment and Plan (1) Chest pain Current Visit: No Status: Resolved Abnorml EKG in setting of ongoing chest pain with negative stress test and ECHO. [facility] d/w pt in regards to R/B/A and she agrees to proceed Qualifiers: Chest pain type: unspecified Qualified Code(s): R07.9 - Chest pain, unspecified Discussion w patient/family: The assessment and plan as outlined above was discussed with the patient and/or family members who expressed understanding and agreement. All questions were answered. Thank you for involving us in the care of your patient. Please call with any questions. History of Present Illness Consult date: 07/02/17 Consult reason: Chest Pain abnormal EKG Chief complaint: Chest pain History of present illness: Ms. Mahmood is a 46 year old female with h/o hypothyroidism, HTN, ex smoker presents with chest pain after recent negative stress test and nml ECHO. EKG with inferolateral ischemia and a pattern close to global ischemia. Patient also ahd CTA negative for PE. R/B/A d/w pt and she agrees to proceed with a [facility]. Past Med Surg Social Fam HX - Past Medical History Medical history: thyroid disease, other Psychiatric history: no psych history - Social History Smoking Status: Former smoker Smokeless Tobacco Status: No Alcohol use: none Drug use: none Medications and Allergies Baclofen [Lioresal] 10 mg PO TID 06/29/17 [History] Gabapentin [Neurontin] 200 mg PO TID 06/29/17 [History] Levothyroxine Sodium 100 mcg PO DAILY 06/29/17 [History] Lisinopril [Zestril] 5 mg PO DAILY tablet 06/30/17 [Rx] hydroCHLOROthiazide [Hydrochlorothiazide] 25 mg PO DAILY tablet 06/30/17 [Rx] metFORMIN [Glucophage] 500 mg PO BIDWM #60 tablet 06/30/17 [Rx] 3 Allergy/AdvReac Type Severity Reaction Status Date / Time No Known Allergies Allergy Verified 07/02/17 09:28 All Systems Review: The remainder of the systems were reviewed and are negative Physical Examination General: Conversant, No Apparent Distress HEENT: Atraumatic, Normocephaly, Mucus Membranes Moist Neck: No JVD, Normal carotid pulses Cardiac: Reg Rate and Rhythm, Normal S1 and S2, No Murmur Lungs: Normal Breath Sounds, No Wheeze, Rales, Rhonchi Neuro: Alert and responsive, No focal deficits noted Abdomen: Soft, Non-Tender Skin: No rashes noted on visualized skin Musculoskeletal: No Chest Wall Tenderness Extremities: No Clubbing, No Cyanosis, No Edema, Normal Pulses Results 07/02/17 09:25 07/02/17 09:25 Consult Discharge Plan - Plan Referrals: Tabitha Archibald, [employer] [Primary Care Provider] -
[2017-07-02] MEDS ORDERED: *HR* Midazolam HCl 2 MG/2 ML VIAL ONE (13:27)
[2017-07-02] MEDS ORDERED: *HR* FentaNYL (PF) 100 MCG/2 ML VIAL ONE ×2 (13:27→15:09)
[2017-07-02] MEDS ORDERED: Tirofiban 12.5 MG/250ML 12.5 MG/250 ML BAG ONE (14:38)
[2017-07-02] MEDS ORDERED: *HR* Ticagrelor 90 MG TABLET ONE (15:12)
[2017-07-02] MEDS ORDERED: Tirofiban 12.5 MG/250ML 12.5 MG/250 ML BAG IVC SCH (15:30)
--- NOTE | 2017-07-02 16:03 | Invasive Diagnostic Lab Proc ---
Name: Ghada Mahmood Date of Study: 07/02/2017 Date: 1970 Ht: 66.1in Medical Record#: [id number] Age: 46 Wt: 198.42lb Gender: Female BSA: 2. Order #: [id number] BMI: 31.89 Physicians Procedure Physician: Bryanna France MD Referring MD: Referring MD: Staff Name Position Time In Stiven, Jeff RN Monitor 01:30 PM Luis Eduardo Wallace RN Ultrasound Tech 01:30 PM Meagan Duran RN Ultrasound Tech 01:30 PM Stephanie Santiago RT (R) Scrub 01:30 PM Indications Indication Unstable Angina Procedures Performed Procedure L HRT ARTERY/VENTRICLE ANGIO IV Doppler BLD Flow 1st Vessel PRQ CARD FRANCISCO STENT W/ANGIO 1 VSL Pre-Procedure Checklist Informed consent is complete signed and on chart. H&P is on chart. ID band is on and ID verified with patient. Patient NPO for procedure The procedure was described for the patient and questions were answered. Blood Pressure: 139/97 ECG is on chart. Plan of Care Patient will tolerate the procedure without complications. Adequate level of comfort will be maintained. Hemodynamics will remain stable Patient will recover from procedure without complications. Respiratory function will be maintained. Cardiac rhythm will remain stable. Patient temperature will be maintained. Patient and/or family have verbalized understanding of the procedure. Patient Education Chief Complaint/Reason for Test: Cardiac Cath Developmental Category: Adult (18-64 years) Developmentally Appropriate for Age: Yes Learning Barriers: None Education Needs: Procedure Education Method: Verbal Information Taught: Cardiac Cath Educational Evaluation: Able to repeat information Intravenous Access Time IV Size Location DC'd Fluid/Drip Rate Units RN 12:53 PM 18g 1 03/29" Patent On Arrival Rt Antecubital Meagan Duran RN Allergies No Known Allergies DENIES Vital Signs Time BP (mmHg) HR (bpm) O2 Sat. RR (bpm) LOC 12:53 PM 139 / 97 93 97 % 18 5 = Fully awake and oriented or at pre-proc level 01:30 PM / % 5 = Fully awake and oriented or at pre-proc level 01:31 PM 134 / 94 97 92 % 01:36 PM 123 / 90 92 93 % 01:42 PM 138 / 81 77 98 % 01:47 PM 149 / 93 81 94 % 01:52 PM 146 / 88 91 92 % 01:57 PM 136 / 87 93 93 % 02:02 PM 136 / 85 89 96 % 02:06 PM 130 / 92 90 97 % 02:12 PM 136 / 87 91 96 % 02:17 PM 134 / 76 94 98 % 02:22 PM 136 / 83 96 97 % 02:27 PM 170 / 108 94 99 % 02:32 PM 134 / 83 89 94 % 02:37 PM 129 / 77 89 93 % 02:42 PM 115 / 79 90 93 % 02:47 PM 130 / 88 92 93 % 02:52 PM 128 / 82 91 93 % 02:57 PM 130 / 95 86 97 % 03:02 PM 142 / 103 86 100 % 03:07 PM 158 / 73 96 100 % 03:12 PM 180 / 122 98 96 % 03:17 PM 154 / 103 91 93 % 03:45 PM 157 / 101 84 94 % 16 5 = Fully awake and oriented or at pre-proc level Procedural Medications Time Medication Dose Units Method Given By 01:31 PM Oxygen 2 L/min nasal cannula Luis Eduardo Wallace RN 01:32 PM Versed 1 mg Intravenous Luis Eduardo Wallace RN 01:32 PM Fentanyl 50 mcg Intravenous Luis Eduardo Wallace RN 01:42 PM Lidocaine 2% 20 ml Subcutaneous Bryanna France MD 01:55 PM Heparin 500 units Intravenous Luis Eduardo Wallace RN 02:06 PM Heparin 2000 units Intravenous Luis Eduardo Wallace RN 02:10 PM Adenosine 798 ml/hr Intravenous Bryanna France MD 02:28 PM Versed 1 mg Intravenous Luis Eduardo Wallace RN 02:28 PM Fentanyl 50 mcg Intravenous Luis Eduardo Wallace RN 02:35 PM Adenosine 798 ml/hr Intravenous Bryanna France MD 02:40 PM Aggrastat Bolus: 46 ml Intravenous Luis Eduardo Wallace RN 03:03 PM Aggrastat 12.5mg/250ml 16.5 ml/hr Intravenous Luis Eduardo Wallace RN 03:10 PM Fentanyl 50 mcg Intravenous Luis Eduardo Wallace RN 03:17 PM Brilinta 180 mg Orally Luis Eduardo Wallace RN ASA Classification: CLASS II- Mild systemic disease (i.e. well-controlled diabetes, hypertension, asthma, cigarette smoking) Jairon Score Preprocedure Postprocedure Activity 2- Moves 4 extremities sustained head lift Activity 2- Moves 4 extremities sustained head lift Circulation 2- SBP +/= 20 points of pre-anesthetic level Circulation 2- SBP +/= 20 points of pre-anesthetic level Consciousness 2- Awake and alert oriented x 3 Consciousness 2- Awake and alert oriented x 3 O2 Saturation 2- Able to maintain O2 satruation of 92% on room air O2 Saturation 2- Able to maintain O2 satruation of 92% on room air Respiratory 2- Able to deep breathe and cough well Respiratory 2- Able to deep breathe and cough well Total Score 10 Total Score 10 Contrast Agent: Isovue Diagnostic Contrast: 450 ml Total Contrast: 450 ml Fluoro Dose: 1846 mGy Activated Clotting Time Time Seconds to Clot 02:06 PM 184 02:33 PM 276 Procedure Log Time Note Enter By 01:30 PM Pt arrived to component lab tech 2 at 13:30 [facility] 01:30 PM Jeff Saleem RN Position: Monitor Time in: 13:30 :30 PM Luis Eduardo Wallace RN Position: Ultrasound Tech Time in: 13:30 mm:30 PM Meagan Duran RN Position: Ultrasound Tech Time in: 13:30 [facility]:30 PM Stephanie Santiago RT (R) Position: Scrub Time in: 13:30 mm 01:30 PM Patient charges- Angio tray pack, Navilyst 3mm J, Pulse Oximetry and ACIST tubing and transducer :30 PM Hair removed from procedure site in procedure lab using clippers. Bilateral groin prepped with Chloraprep by Stephanie Santiago RT (R), then patient was draped. Skin intact. mm:30 PM Physician arrived 13:30 :30 PM Meet and greet completed :30 PM Sign in performed according to hospital policy. :30 PM Procedure start 13:30 mm:30 PM Time: 13:30 Patient comfortable and pain free: Yes : PM Time: 13:30LOC: 5 = Fully awake and oriented or at pre-proc level PM Time: 13:31 Oxygen on at 2 L/min per nasal cannula by Luis Eduardo Wallace RN oumm: PM CathStat :31 PM Vitals capture started with the following parameters, Patient=Adult, Interval=5 min, Initial Mzldrpxb=878 mmHg, Deflation Rate=5 mmHg, Cuff placed on Right Arm 01:31 PM HR=97 bpm, PFRN=319/94 mmhg, SpO2=92.0 %, Comment=NSR 01:32 PM ASA Class CLASS II- Mild systemic disease (i.e. well-controlled diabetes, hypertension, asthma, cigarette smoking) [facility] PM Time: 13:32 Versed 1 mg Intravenous Given by Luis Eduardo Wallace RN isreal 01:32 PM Time: 13:32 Fentanyl 50 mcg Intravenous Given by Luis Eduardo Wallace RN 01:32 PM Clinical Presentation: Unstable angina [facility] 01:36 PM HR=92 bpm, RFLE=674/90 mmhg, SpO2=93.0 %, Comment=NSR 01:39 PM Pressure channel 1 zeroed. 01:40 PM Recorded ECG: HR=88 Condition=Condition 1 01:42 PM HR=77 bpm, QCGB=628/81 mmhg, SpO2=98.0 %, Comment=NSR 01:42 PM Time out performed according to hospital policy [email or web address] 01:42 PM Time: 13:42 20 ml Lidocaine 2% to right groin Subcutaneous Given by Bryanna France MD [email or web address] 01:43 PM Micro-Introducer Kit utilized for sheath placement [email or web address] 01:45 PM Access obtained by percutaneous puncture. 6Fr 10cm Terumo [place] sheath placed in right Femoral artery. [id number] [email or web address] 01:45 PM 5Fr FR 4 catheter inserted over the wire [facility] jcallihan 01:45 PM Recorded Pressure: Ao, HR=86, Condition=Condition 1 (Aorta) Ao 114/90/102 01:46 PM RCA angiography performed in multiple views. [email or web address] 01:47 PM HR=81 bpm, UPGF=653/93 mmhg, SpO2=94.0 %, Comment=NSR 01:47 PM Catheter removed [email or web address] 01:47 PM 5Fr FL 4 catheter inserted over the wire [facility] jcallihan 01:49 PM LCA angiography performed in multiple views. [email or web address] 01:49 PM Coronary Dominance: Left [email or web address] 01:52 PM HR=91 bpm, CULD=379/88 mmhg, SpO2=92.0 %, Comment=NSR 01:54 PM Catheter removed [email or web address] 01:54 PM 6Fr FL 4 catheter inserted over the wire DN jcallihan 01:55 PM Time: 13:55 Heparin 500 units Intravenous Given by Luis Eduardo Wallace RN [email or web address] 01:56 PM Recorded Pressure: Ao, HR=92, Condition=Condition 1 (Aorta) Ao 118/82/100 01:57 PM HR=93 bpm, GBPV=273/87 mmhg, SpO2=93.0 %, Comment=NSR 01:58 PM More pictures taken, engaged catheter to the LAD better. [email or web address] 02:00 PM Recorded Pressure: LV, HR=93, Condition=Condition 1 (Left Ventricle) LV 111/7/20 02:00 PM Catheter removed [email or web address] 02:00 PM 5Fr Pigtail catheter inserted over the wire DN jcallihan 02:00 PM Recorded Pressure: LV, Ao, HR=93, Condition=Condition 1 (Left Ventricle) LV 119/10/13, (Aorta) Ao 133/95/113 02:01 PM Pressures taken, no LV gram performed [email or web address] 02:02 PM HR=89 bpm, UFXH=399/85 mmhg, SpO2=96.0 %, Comment=NSR 02:02 PM 6Fr XB LAD 3.5 Cordis guide catheter was used to cannulate the PCI vessel successfully. reused? No [email or web address] 02:02 PM Inflation device was opened. [email or web address] 02:05 PM [employer] FFR Wire advanced to target lesion. [email or web address] 02:05 PM Pressure channel 3 zeroed. 02:05 PM Pressure channel 1 zeroed. 02:05 PM Pressure channel 3 zeroed. 02:06 PM At 14:06 the ACT was 184 seconds. [email or web address] 02:06 PM Time: 14:06 Heparin 2000 units Intravenous Given by Luis Eduardo Wallace RN [email or web address] 02:06 PM HR=90 bpm, IEGC=747/92 mmhg, SpO2=97.0 %, Comment=NSR 02:08 PM Pressure channel 3 equalized to channel 1. 02:08 PM Pressure channel 3 equalized to channel 1. 02:08 PM Pressure channel 3 equalized to channel 1. 02:08 PM Pressure channel 3 equalized to channel 1. 02:10 PM Time: 14:10 Adenosine 798 ml/hr administered Intravenous by Bryanna France MD [email or web address] 02:10 PM FFR: Value=0.90, Condition=Condition 1, Device=VOLCANO PRIME WIRE 02:10 PM Recorded Pressure: Ao, Ao, FFR=0.90, HR=94, Condition=Condition 1 (Aorta) Ao 124/91/107, (Aorta) Ao 120/80/97 02:12 PM HR=91 bpm, XNVS=243/87 mmhg, SpO2=96.0 %, Comment=NSR 02:12 PM Recorded Pressure: Ao, Ao, FFR=0.80, HR=94, Condition=Condition 1 (Aorta) Ao 110/82/96, (Aorta) Ao 99/63/78 02:12 PM FFR: Value=0.80, Condition=Condition 1, Device=VOLCANO PRIME WIRE 02:13 PM Adenosine stopped [email or web address] 02:14 PM FFR Measurement: 0.80 [email or web address] 02:16 PM Recorded Pressure: Ao, Ao, FFR=0.84, HR=82, Condition=Condition 1 (Aorta) Ao 123/87/103, (Aorta) Ao 120/69/89 02:16 PM FFR: Value=0.84, Condition=Condition 1, Device=VOLCANO PRIME WIRE 02:16 PM Restart adenosine @ 798 ml/hr [email or web address] 02:17 PM HR=94 bpm, EJUS=694/76 mmhg, SpO2=98.0 %, Comment=NSR 02:18 PM Recorded Pressure: Ao, Ao, FFR=0.85, HR=90, Condition=Condition 1 (Aorta) Ao 124/85/103, (Aorta) Ao 122/68/90 02:18 PM FFR: Value=0.85, Condition=Condition 1, Device=VOLCANO PRIME WIRE 02:20 PM FFR Measurement: 0.84 [email or web address] 02:20 PM [ Start FFR sample ] 02:22 PM HR=96 bpm, JPKV=465/83 mmhg, SpO2=97.0 %, Comment=NSR 02:27 PM Flow Wire/Catheter removed intact [email or web address] 02:27 PM HR=94 bpm, ORLO=688/108 mmhg, SpO2=99.0 %, Comment=NSR 02:28 PM .014 [employer] Blue Point 190cm guide wire across target lesion- successful. reused? No [email or web address] 02:28 PM Asist FFR Catheter advanced to target lesion. [email or web address] 02:28 PM Time: 14:28 Versed 1 mg Intravenous Given by Luis Eduardo Wallace RN jcantonino 02:28 PM Time: 14:28 Fentanyl 50 mcg Intravenous Given by Luis Eduardo Wallace RN jcantonino 02:32 PM HR=89 bpm, BKNS=657/83 mmhg, SpO2=94.0 %, Comment=NSR 02:34 PM At 14:33 the ACT was 276 seconds. [email or web address] 02:35 PM Time: 14:35 Adenosine 798 ml/hr administered Intravenous by Bryanna France MD [email or web address] 02:37 PM HR=89 bpm, EWFA=265/77 mmhg, SpO2=93.0 %, Comment=NSR 02:37 PM Adenosine off [email or web address] 02:38 PM Flow Wire/Catheter removed intact jcallihan 02:38 PM FFR Measurement: 0.76 [email or web address] 02:39 PM 2.0 mm x 12 mm Emerge Monorail balloon across target lesion- successful. reused? No [email or web address] 02:40 PM Lesion found in Proximal LAD. Pre Stenosis: 70 Pre TOAN Flow: 3: Complete and Brisk Flow/Perfusion jcallihan 02:40 PM Proximal Left Anterior Descending Coronary Artery with 70% stenosis. If graft is supplying this territory, 0 % stenosis. [email or web address] 02:40 PM Time: 14:40 Aggrastat Bolus: 46 ml Intravenous Given by Luis Eduardo Wallace RN Méndez pump [email or web address] 02:41 PM Time: 14:41 Aggrastat 12.5mg/250ml 16.5 ml/hr Intravenous Given by Luis Eduardo Wallace RN Méndez pump [email or web address] 02:42 PM HR=90 bpm, WQEU=225/79 mmhg, SpO2=93.0 %, Comment=NSR 02:43 PM Recorded Pressure: Ao, HR=89, Condition=Condition 1 (Aorta) Ao 101/78/90 02:44 PM Balloon inflated @ 6 gary for 9 seconds [email or web address] 02:45 PM Recorded Pressure: Ao, HR=88, Condition=Condition 1 (Aorta) Ao 117/90/104 02:45 PM Balloon inflated @ 6 gary for 9 seconds [email or web address] 02:47 PM HR=92 bpm, JDGJ=648/88 mmhg, SpO2=93.0 %, Comment=NSR 02:47 PM Balloon catheter removed intact. [email or web address] 02:48 PM 3.5mm x 16mm Synergy drug-eluting stent across target lesion- successful Lot #[id number] [email or web address] 02:52 PM HR=91 bpm, AREZ=786/82 mmhg, SpO2=93.0 %, Comment=NSR 02:53 PM .014 [employer] Blue Point 190cm guide wire across target lesion- successful. Second wire down Circ. jcallihan 02:57 PM HR=86 bpm, AYHE=210/95 mmhg, SpO2=97.0 %, Comment=NSR 02:59 PM Stent deployed @ 9 gary for 11 seconds [email or web address] 02:59 PM Stent balloon reinflated @ 12 gary for 12 seconds jcallihan 03:00 PM Stent delivery system removed intact. [email or web address] 03:02 PM HR=86 bpm, BNOS=272/103 mmhg, NgD1=482.0 %, Comment=NSR 03:06 PM Guide catheter removed intact. [email or web address] 03:06 PM Guide wire removed intact. [email or web address] 03:06 PM Right Groin shot obtained. contrast injected. jcallihan 03:07 PM HR=96 bpm, RWZJ=193/73 mmhg, WyV7=773.0 %, Comment=NSR 03:07 PM Procedure completed at 15:07 [email or web address] 03:07 PM Did you address TOAN flow and Dominance? Yes [email or web address] 03:07 PM Sign out completed: Radiation Dose 1846 mGy Fluoro Time: 16.5 Isovue 370 - 200ml contrast 450 ml given by Bryanna France MD. Complications: NoneCardiac Rehab Consult needed: YesConfirmed administered medications: Yes [email or web address] 03:08 PM Isovue 370 - 200ml,3 Bottle(s) used. [email or web address] 03:08 PM Arterial sheath pulled, Angio-seal closure device used and was Successful [id number] S/N. jcallihan 03:08 PM Estimated Blood Loss: less than 20cc jcallihan 03:08 PM Post ECG NSR jcallihan 03:08 PM Post Blood Pressure 158/73 jcallihan 03:09 PM 15:08 Post Pulses Bilateral DP & PT 2+ jcallihan 03:09 PM Information taught Cardiac Cath, PCI, and Angioseal [facility] 03[facility]10 PM Education needs Procedure, Plan of Care, and Responsibilities of Patient in Care jcallihan 03:10 PM Learning barriers :None jcallihan 03:10 PM Education Methods Verbal [facility] 03:10 PM Education evaluation Able to repeat information [email or web address] 03:10 PM Time: 15:10 Fentanyl 50 mcg Intravenous Given by Luis Eduardo Wallace RN [facility] 03:12 PM Site status No bleeding/hematoma - Rt Groin as reported by Stephanie Santiago RT (R) at 15:11 jcallihan 03:12 PM Opsite applied jcallihan 03:12 PM Plavix, Effient or Brilinta given Yes [email or web address] 03:12 PM HR=98 bpm, ILXZ=657/122 mmhg, SpO2=96.0 %, Comment=NSR 03:13 PM Family placed in consult room. [email or web address] 03:13 PM Complications: None jcallihan 03:13 PM Fluoro Time: 16.5 [email or web address] 03:13 PM Isovue 370 - 200ml contrast 450 ml given by Bryanna France. allihan 03:13 PM Radiation Dose 1846 mGy jcallihan 03:15 PM PCI Status Urgent jcallihan 03:15 PM PCI Indication: PCI for high risk Non-STEMI or unstable angina jcallihan 03:17 PM HR=91 bpm, UOEV=319/103 mmhg, SpO2=93.0 %, Comment=NSR 03:17 PM Time: 15:17 Brilinta 180 mg Orally Given [facility] PM Patient out of room: 15:17 [email or web address] 03:38 PM patient voided large amount to bedpan mprater 03:53 PM report called to [facility] on 2NE mprater 03:54 PM pateint transfered to 2NE mprater Complications Complication None None Hemodynamics Pressures Site Systolic/A Wave Diastolic/V Wave Mean AO 114 90 102 AO 118 82 100 LV 111 7 20 LV 119 10 13 AO 133 95 113 AO 124 91 107 AO 120 80 97 AO 110 82 96 AO 99 63 78 AO 123 87 103 AO 120 69 89 AO 124 85 103 AO 122 68 90 AO 101 78 90 AO 117 90 104 Post Procedure Information Blood Pressure: 158/73 mmHg Rhythm: NSR Post procedural instructions were given Closure Device Time Device Success/Fail 07/02/2017 3:10:00 PM Angio-Seal VIP Successful Site Checks Time Location Status Staff Sheath In? Note 03:11 PM Rt Groin No bleeding/hematoma Stephanie Santiago RT (R) 03:45 PM Rt Groin No bleeding/ No Hematoma Ame Murray RN Pulses Time Site Pre-Procedure Post-Procedure Note Bilateral DP & PT 2+ 3:08:00 PM Bilateral DP & PT 2+ 07/02/2017 3:45:00 PM Bilateral DP & PT 2+ Updated by Ame Murray, ERNESTO on 07/02/2017 3:54:41 PM Ame Murray RN electronically signed on 07/02/2017 3:55:18 PM with status of Final
--- NOTE | 2017-07-02 16:31 | Internal Med History&Physical ---
Date of Encounter: 07/02/17 Time of Encounter: 16:28 Assessment and Plan (1) Diabetes mellitus Current visit: No Status: Acute Chronic we will start patient on sliding scale Qualifiers: Diabetes mellitus type: type 2 Diabetes mellitus shelter insulin use: without shelter use Diabetes mellitus complication status: with unspecified complications Qualified Code(s): E11.8 - Type 2 diabetes mellitus with unspecified complications (2) Unstable angina Current visit: Yes Status: Acute Patient underwent cardiac catheter and subsequent angioplasty currently stable (3) Acute electrocardiogram changes Current visit: Yes Status: Acute Internal Medicine - H&P: HPI Chief complaint: chest pain Admitted From: Emergency Dept Plans for Post Hospital Care: Home History of present illness: Ms. Mahmood is a 46 year old female Patient with history of diabetes, hypertension, obesity. Patient was admitted recently with chest pain had a nuclear stress test and echocardiogram done which was negative echo was normal LV function patient presented emergency room again with chest pain with shortness of breath EKG was abnormal showing inferior lateral wall ischemia patient was seen by cardiology and then taken to the [facility] had angioplasty done dont have the catheter cath report patient is stable not having anymore chest pain will monitor overnight Past Med Surg Social Fam HX - Past Medical History Medical history: diabetes, hypertension, thyroid disease, other Psychiatric history: no psych history - Social History Smoking Status: Former smoker Smokeless Tobacco Status: No Alcohol use: none Drug use: none Internal Medicine - H&P: Meds Baclofen [Lioresal] 10 mg PO TID 06/29/17 [History] Gabapentin [Neurontin] 200 mg PO TID 06/29/17 [History] Levothyroxine Sodium 100 mcg PO DAILY 06/29/17 [History] Lisinopril [Zestril] 5 mg PO DAILY tablet 06/30/17 [Rx] hydroCHLOROthiazide [Hydrochlorothiazide] 25 mg PO DAILY tablet 06/30/17 [Rx] metFORMIN [Glucophage] 500 mg PO BIDWM #60 tablet 06/30/17 [Rx] 3 Allergy/AdvReac Type Severity Reaction Status Date / Time No Known Allergies Allergy Verified 07/02/17 09:28 All Systems PM: A 10-system review of systems was performed and is negative for pertinent findings except as documented above in the HPI. - Constitutional Constitutional: no chills, no fever(s), no night sweats - EENT Eyes: no change in vision, no discharge, no pain, no photophobia Ears: no ear discharge, no ear pain, no tinnitus Nose, mouth and throat: no dysphagia, no nasal discharge, no neck pain, no sore throat - Cardiovascular Cardiovascular ROS IM: chest pain, dyspnea on exertion - Respiratory Respiratory: dyspnea on exertion - Gastrointestinal Gastrointestinal: no abdominal pain, no diarrhea, no hematemesis, no hematochezia, no melena, no nausea, no vomiting - Genitourinary Genitourinary: no change in urinary stream, no dysuria, no flank pain, no hematuria - Musculoskeletal Musculoskeletal ROS IM: no numbness, no tingling - Integumentary Integumentary IM: no rash, no unusual bruising - Neurological Neurological ROS: no confusion, no convulsions, no focal weakness, no numbness, no tingling, no tremor(s) - Constitutional Vitals: Temp Pulse Resp BP Pulse Ox 97.6 F 78 18 129/109 97 07/02/17 08:42 07/02/17 16:17 07/02/17 16:17 07/02/17 16:17 07/02/17 16:17 - Head Head exam: Present: atraumatic, normocephalic - Eye Eye exam: Present: PERRL, conjuntiva pink, sclera anicteric Pupils: Present: PERRL - Neck Neck exam general surgery: Present: supple, trachea midline. Absent: lymphadenopathy - Respiratory Respiratory exam: Present: CTAB. Absent: accessory muscle use, rales, rhonchi, wheezes - Cardiovascular Cardiovascular exam: Present: RRR, +S1, +S2. Absent: diastolic murmur, gallop, rubs, systolic murmur - GI/Abdominal GI/Abdominal exam: Present: normal bowel sounds, soft, no peritoneal signs. Absent: distended, tenderness - Extremities Exam Extremities exam: Present: warm, radial pulses palpable and symmetrical. Absent : calf tenderness, cyanotic, pedal edema - Neurological Exam Neurological exam: Present: CN II-XII intact, oriented X3, no focal deficits. Absent: pronater drift, facial droop, speech deficit - Skin Skin exam: Present: dry, intact Internal Med - H&P Results - Labs CBC & Chem 7: 07/02/17 09:25 07/02/17 09:25
[2017-07-02] MEDS ORDERED: traMADol 50 MG TABLET PO PRN (16:39)
[2017-07-02] MEDS ORDERED: Acetaminophen 325 MG TABLET PO PRN (16:39)
[2017-07-02] MEDS ORDERED: Naloxone 0.4 MG/ML INJ IVP PRN (16:39)
[2017-07-02] MEDS ORDERED: D5% in Water 1,000 ML IVC PRN (16:41)
[2017-07-02] MEDS ORDERED: *HR* Dextrose 50 % in Water (Syg) 50 ML SYRINGE IVP PRN (16:41)
[2017-07-02] MEDS ORDERED: Dextrose Gel 15 GM/37.5 ML TUBE PO PRN ×2 (16:41)
[2017-07-02] MEDS: Gabapentin 100 MG CAPSULE PO SCH (19:47)
[2017-07-02] MEDS: *HR* Ticagrelor 90 MG TABLET PO SCH (20:49)
[2017-07-02] MEDS: 0.9 % Sodium Chloride 1,000 ML IVC SCH (20:49)
[2017-07-02] MEDS ORDERED: Insulin LISPRO 300 UNITS/3 ML VIAL SQ SCH (21:00)
[2017-07-03 01:40] LABS: Hematocrit 39.4 % (35.3-44.9)
[2017-07-03 01:47] LABS: Hemoglobin 13.2 g/dL (11.5-15.4)
[2017-07-03 02:04] LABS: BUN/Creatinine Ratio 24 (6-26); Blood Urea Nitrogen 16 mg/dL (6-20); eGFR For African Americans > 60 (> 60); eGFR For Non-African Americans > 60 (> 60)
[2017-07-03 02:16] LABS: Troponin I 0.04 ng/mL (< 0.04)
[2017-07-03] MEDS: Baclofen 10 MG TABLET PO SCH ×2 (05:05→09:25)
[2017-07-03] MEDS: 0.9 % Sodium Chloride 1,000 ML IVC SCH (06:17)
[2017-07-03 06:29] VITALS: BP 128/94
[2017-07-03] MEDS: Insulin LISPRO 300 UNITS/3 ML VIAL SQ SCH ×2 (07:49→12:23)
[2017-07-03] MEDS ORDERED: Adenosine 90 MG/30 ML MLS IV ONE (08:38)
[2017-07-03] MEDS ORDERED: Aspirin 81 MG TAB.CHEW PO SCH (09:00)
[2017-07-03] MEDS ORDERED: hydroCHLOROthiazide 25 MG TABLET PO SCH (09:00)
[2017-07-03 09:16] LABS: Chol/HDL Ratio 3.4 (0-4.9); Cholesterol 175 mg/dL (< 200); HDL Cholesterol 52 mg/dL (40-59); LDL Cholesterol,Calculated 92 mg/dL (0-99); Magnesium 2.2 mg/dL (1.6-2.6); Triglycerides 155 mg/dL (< 150)
--- NOTE | 2017-07-03 09:17 | Cardiology Progress Note ---
Date of Encounter: 07/03/17 Time of Encounter: 09:14 Assessment and Plan (1) CAD (coronary artery disease) Current Visit: Yes Status: Acute S/P LHC yesterday for chest pain, EKG changes and recent negative stress test. Received FRANCISCO to pLAD. Final report pending. DAPT (ASA and Brilinta) uninterrupted x 1 year. Pt verbalizes understanding. Free 30 day card given. Start Statin and BB. Post cath troponin 0.04. No events on tele. Right femoral access site healing well. No bleeding, hematoma or ecchymosis noted. Denies recurrent chest pain. Recent TTE 06/2017 EF preserved. Restrictions discussed. Cardiology signing off. Reconsult PRN. Will coordinate outpt follow-up in 3-4 weeks. Qualifiers: Coronary Disease-Associated Artery/Lesion type: [place] artery [place] vs. transplanted heart: [place] heart Associated angina: angina presence unspecified Qualified Code(s): I25.10 - Atherosclerotic heart disease of [place] coronary artery without angina pectoris Discussion w patient/family: The assessment and plan as outlined above was discussed with the patient and/or family members who expressed understanding and agreement. All questions were answered. Thank you for involving us in the care of your patient. Please call with any questions. I will discuss all the above with Dr. Butcher and make changes as necessary. Subjective Principal diagnosis: CAD, chest pain Interval history: S/P LHC yesterday for chest pain, EKG changes and recent negative stress test. Received FRANCISCO to pLAD--final report pending. Pt reports feeling great this AM. Denies chest pain or dyspnea. Objective Vital Signs, Last 4 Hours Temp Pulse Resp BP Pulse Ox 07/03/17 06:28 98.3 F 68 17 128/94 95 Vital Signs Temp Pulse Resp BP Pulse Ox 07/03/17 06:28 98.3 F 68 17 128/94 95 07/03/17 04:31 97.8 F 78 16 111/79 96 07/03/17 00:57 97.7 F 72 16 120/75 95 07/02/17 20:00 96 07/02/17 19:47 97.7 F 82 18 136/89 96 07/02/17 16:17 78 18 129/109 97 07/02/17 12:58 18 121/90 07/02/17 11:09 86 16 151/99 97 04/09/18 10:16 90 14 149/104 96 Intake and Output 07/02/17 07/03/17 07/03/17 23:59 07:59 15:59 Intake Total 150 / 150 1100 / 1100 Output Total 0 / 0 Balance 150 / 150 1100 / 1100 Intake: IV Fluids 950 / 950 0.9 % Sodium Chloride 1,000 ML 950 / 950 @ 100 mls/hr IVC .Q10H GUS Rx#: [id number] Oral 150 / 150 150 / 150 Output: Urine 0 / 0 Other: # Voids 1 2 Weight 95.4 kg Blood Glucose* 163 131 Patient Weight 07/03/17 23:59 Weight 95.4 kg General: Conversant, No Apparent Distress HEENT: Atraumatic, Normocephaly, Mucus Membranes Moist Neck: No JVD, Normal carotid pulses Cardiac: Reg Rate and Rhythm, Normal S1 and S2, No Murmur Lungs: Normal Breath Sounds, No Wheeze, Rales, Rhonchi Neuro: Alert and responsive, No focal deficits noted Abdomen: Soft, Non-Tender Skin: Other (right femoral access site healing well. No bleeding, hematoma or ecchymosis noted.) Musculoskeletal: No Chest Wall Tenderness Extremities: No Clubbing, No Cyanosis, No Edema, Normal Pulses Results 07/03/17 01:23 07/03/17 01:23 Lab Results 07/03/17 07/03/17 01:23 01:23 Hgb 13.2 D Hct 39.4 Plt Count 325 BUN 16 Creatinine 0.67 Troponin I 0.04 H* Short CBC 07/03/17 07/02/17 Range/Units 01:23 09:25 WBC 11.1 (4.3-11.1) K/mcL Hgb 13.2 D 15.6 H (11.5-15.4) g/dL Hct 39.4 46.6 H (35.3-44.9) % Plt Count 325 420 H (140-400) K/mcL Neutrophils # 6.7 (1.6-8.9) K/mcL BMP 07/03/17 07/02/17 Range/Units 01:23 09:25 Sodium 130 L (136-145) mEq/L Potassium 3.5 (3.5-5.1) mEq/L Chloride 96 L (98-107) mEq/L Carbon Dioxide 21 L (23-29) mEq/L BUN 16 24 H (6-20) mg/dL Creatinine 0.67 0.74 (0.60-1.20) mg/dL Glucose 165 H (70-105) mg/dL Calcium 9.9 (8.6-10.3) mg/dL Cardiac Enzymes 07/03/17 07/02/17 Range/Units 01:23 09:25 Troponin I 0.04 H* < 0.03 (< 0.04) ng/mL Urine 07/02/17 Range/Units 09:38 Urine Color Yellow (Yellow) Urine Clarity Clear (Clear) Urine pH 6.0 (5.0-8.0) pH Units Ur Specific [place] 1.019 (1.010-1.025) Urine Protein Trace (Neg-Trace) mg/dL Urine Glucose (UA) Normal (Normal) mg/dL Impressions Chest X-Ray 07/02/17 09:01 IMPRESSION: No acute abnormality. D/ / 07/02/2017 10:12:34 Bishop Keane MD / [facility] Interpreting Provider: Bishop Keane MD Chest CTA 07/02/17 09:23 IMPRESSION: No evidence of pulmonary embolism or acute pulmonary abnormality. D/ / Dane Loepz MD / Dane Lopez MD Interpreting Provider: Dane Lopez MD Active Medications Acetaminophen (Tylenol) 650 mg PO Q6HR PRN PRN Reason: Mild Pain/Fever Stop: 01/01/18 16:40 Last Admin: 07/02/17 19:47 Dose: 650 mg Aspirin (Aspirin) 81 mg PO DAILY [facility] Stop: 01/02/18 09:01 Baclofen (Lioresal) 10 mg PO TID GUS Stop: 01/01/18 21:01 Last Admin: 07/03/17 05:05 Dose: Not Given Dextrose/Water (Dextrose 50% (Syg)) 25 ml IVP AD PRN PRN Reason: Hypoglycemia Stop: 01/01/18 16:42 Gabapentin (Neurontin) 200 mg PO TID [facility] Stop: 01/01/18 21:01 Last Admin: 07/02/17 19:47 Dose: 200 mg Glucagon (Glucagen) 1 mg IM ONCE PRN PRN Reason: Hypoglycemia Stop: 01/01/18 16:42 Glucose (Gluctose) 15 gm PO ONCE PRN PRN Reason: Hypoglycemia Stop: 01/01/18 16:42 Glucose (Gluctose) 30 gm PO ONCE PRN PRN Reason: Hypoglycemia Stop: 01/01/18 16:42 Hydrochlorothiazide (Hydrochlorothiazide) 25 mg PO DAILY [facility] PRN Reason: Protocol Stop: 01/02/18 09:01 Heparin Sodium/Dextrose (Heparin 25,000 Unit/500 Ml D5w) 25,000 unit in 500 mls @ 21.772 mls/hr IVC .[id number] GUS; 12 UNIT/KG/HR PRN Reason: Protocol Stop: 01/01/18 12:01 Last Admin: 07/02/17 12:51 Dose: 12 unit/kg/hr, 21.772 mls/hr Dextrose (Dextrose 5%) 1,000 mls @ 100 mls/hr IVC .Q10H PRN PRN Reason: HYPOGLYCEMIA Stop: 01/01/18 16:42 Sodium Chloride (0.9 % Sodium Chloride) 1,000 mls @ 100 mls/hr IVC .Q10H [facility] Stop: 01/01/18 18:46 Last Admin: 07/03/17 06:17 Dose: 100 mls/hr Insulin Human Lispro (Humalog) 0 units SQ HS [facility] PRN Reason: Protocol Stop: 01/01/18 21:01 Last Admin: 07/02/17 20:52 Dose: Not Given Insulin Human Lispro (Humalog) 0 units SQ TIDAC [facility] PRN Reason: Protocol Stop: 01/02/18 07:31 Last Admin: 07/03/17 07:49 Dose: Not Given Levothyroxine Sodium (Synthroid) 100 mcg PO 0630 [facility] Stop: 01/02/18 06:31 Last Admin: 07/03/17 06:16 Dose: 100 mcg Lisinopril (Zestril) 5 mg PO DAILY [facility] PRN Reason: Protocol Stop: 01/02/18 09:01 Naloxone HCl (Narcan) 0.4 mg IVP Q2MIN PRN PRN Reason: SEE COMMENTS Stop: 01/01/18 16:40 Ticagrelor (Brilinta) 90 mg PO BID GUS Stop: 01/01/18 21:01 Last Admin: 07/02/17 20:49 Dose: 90 mg Tramadol HCl (Ultram) 50 mg PO Q6HR PRN PRN Reason: Moderate Pain Stop: 01/01/18 16:40 Last Admin: 07/02/17 17:59 Dose: 50 mg - Imaging and Cardiology Echo: report reviewed Cardiac cath: report reviewed - EKG Interpretation EKG results cardiology: other (12 hr tele AVG HR 72, SR, no significant pauses or arrhythmias noted.) Consult Discharge Plan - Plan Additional Instructions: RISK FACTORS: STOP SMOKING: If you smoke, STOP. Smoking or tobacco use significantly increases your risk of heart disease because nicotine causes the arteries to narrow or constrict. It also causes fats to stick to the artery. Your chances of having a heart attack are greatly increased if you continue to smoke. For more information, call the education line for smoking cessation 5-797-AOLOIHW EAT A LOW FAT/CHOLESTEROL/SODIUM DIET: This diet may help reduce your chances of having a heart attack. LIFTING: Avoid lifting anything more than 10 pounds for 5-7 days Prior to straining, laughing, sneezing and/or coughing, apply manual pressure directly over insertion site. ACTIVITY: You may walk or climb stairs as tolerated You can resume sexual activity as tolerated In general, you are encouraged to engage in a minimum of 30 minutes or more of moderate intensity physical activity, such as brisk walking, daily or at least 3 -4 times weekly BATHING Do not submerge the site into water (bath tub, hot tub, swimming pool) for 1 week. This can be a source for infection into the blood stream. You may shower after 24 hours SITE CARE: After 24 hours, you may remove the dressing and leave the site open to air. Keep the site clean and dry. Clean gently and pat dry. You can expect bruising and tenderness that gradually resolve within a week or two. Return to work as instructed per your physician Resume driving as instructed per physician Keep all scheduled follow up appointments Resume medications as instructed IMPORTANT: If prescribed a Platelet Aggregation Inhibitor such as, Plavix, Brilinta or Effient: Duration of therapy is minimum one year These medications are often used in combination with Aspirin in prevention of future heart attacks Never discontinue unless consult with your Pot Room Tapper STROKE (CVA) Risk factors for a stroke are: Age, cigarette smoking, diabetes, excessive alcohol consumption, family history, high blood pressure, overweight, physical inactivity, prior stroke, heart attack, diagnosis of carotid artery stenosis or other artery disease. Warning signs: Sudden numbness or weakness of the face, arm or leg; especially on one side of the body, sudden confusion, trouble speaking or understanding, sudden trouble seeing in one or both eyes, sudden trouble walking, dizziness, loss of balance or coordination, sudden severe headache with no cause. Call 911 or go to the Emergency Room. CONGESTIVE HEART FAILURE: If you have been diagnosed with Congestive Heart Failure (CHF) and your symptoms return, make an appointment with your physician Weigh yourself daily. Notify your physician if you have a weight gain of two or more pounds in one day or five or more pounds in one week. If you experience any difficulty breathing, please call 911 BLEEDING: Although the risk of bleeding is minimal, it can happen. If you have any bleeding from the site, apply firm pressure above the puncture site for 10-15 minutes. If the bleeding does not stop, continue manual pressure and call 911 Contact your physician if: You develop a fever greater than 101 degrees Fahrenheit Your site becomes reddened or has any drainage You have an increase in pain or burning at the site or if a large knot forms at the site. If you experience chest pain, shortness of breath, dizziness, or extreme tiredness, stop the activity and rest. Please notify your physicians office if you experience any of these symptoms and they are not relieved by rest please call 911! Referrals: Tabitha Archibald, MEAT SMOKER [Primary Care Provider] -
--- NOTE | 2017-07-03 09:23 | Discharge Summary ---
- NOTES TO OUTPATIENT PROVIDER Notes to Outpatient Provider: Pt had negative stress test but returned with similar symptoms. Had cardiac cath and stent placement. Date of Encounter: 07/03/17 Time of Encounter: 09:21 - Discharge Diagnosis (1) Unstable angina Priority: Primary Status: Acute (2) CAD (coronary artery disease) Priority: Secondary Status: Chronic Qualifiers: Coronary Disease-Associated Artery/Lesion type: [place] artery [place] vs. transplanted heart: [place] heart Associated angina: with unstable angina Qualified Code(s): I25.110 - Atherosclerotic heart disease of [place] coronary artery with unstable angina pectoris (3) Diabetes mellitus Priority: Secondary Status: Chronic Qualifiers: Diabetes mellitus type: type 2 Diabetes mellitus extermination supervisor insulin use: without extermination supervisor use Diabetes mellitus complication status: with circulatory complication Diabetes mellitus complication detail: with other circulatory complications Qualified Code(s): E11.59 - Type 2 diabetes mellitus with other circulatory complications (4) Hypertension Priority: Secondary Status: Chronic Qualifiers: Hypertension type: essential hypertension Qualified Code(s): I10 - Essential (primary) hypertension (5) Chronic back pain Priority: Secondary Status: Chronic Qualifiers: Back pain location: low back pain Back pain laterality: bilateral Sciatica presence: without sciatica Qualified Code(s): M54.5 - Low back pain; G89.29 - Other chronic pain; G89.29 - Other chronic pain Hospital course: Ms. Mahmood is a 46 year old female recently diagnosed with DM and HTN presented to ED with chest and abdomen discomfort. She had recently been hospitalized with similar symptoms and had negative stress test and echo. She was seen by cardiology and taken to cardiac cath this time and had stent placement. Ms Mahmood was taken to cardiac cath and had placement of stent. She was started on ASA and Brlinta. She feels much better at this time and is ready to go home. She is now on ASA, Brlinta, statin and beta christi. She is to hold Metformin till . She will follow up as outpatient. Discharge discussed with: patient - Time Spent with Patient Total time spent providing and/or coordinating discharge services: 38min - Discharge Medications Prescriptions: Atorvastatin [Lipitor] 40 mg PO HS #30 tablet Metoprolol XL (24 HR) Succ [Toprol Xl] 25 mg PO DAILY #30 tab.er.24h Ticagrelor [Brilinta] 90 mg PO BID #60 tablet Home Medications: Baclofen [Lioresal] 10 mg PO TID 06/29/17 [History] Gabapentin [Neurontin] 200 mg PO TID 06/29/17 [History] Levothyroxine Sodium 100 mcg PO DAILY 06/29/17 [History] Lisinopril [Zestril] 5 mg PO DAILY tablet 06/30/17 [Rx] hydroCHLOROthiazide [Hydrochlorothiazide] 25 mg PO DAILY tablet 06/30/17 [Rx] metFORMIN [Glucophage] 500 mg PO BIDWM #60 tablet 06/30/17 [Rx] Atorvastatin [Lipitor] 40 mg PO HS #30 tablet 07/03/17 [Rx] Metoprolol XL (24 HR) Succ [Toprol Xl] 25 mg PO DAILY #30 tab.er.24h 07/03/17 [ Rx] Ticagrelor [Brilinta] 90 mg PO BID #60 tablet 07/03/17 [Rx] Allergies/Adverse Reactions: 3 Allergy/AdvReac Type Severity Reaction Status Date / Time No Known Allergies Allergy Verified 07/02/17 09:28 Date of admission: 07/02/17 16:39 Primary care physician: Tabitha Archibald CNP Consults: 07/03/17 07:42 Consult to Nutrition [CONS] Routine Comment: New DM diagnosis, wants some diet education. Consulting Provider: NUTRITION Reason for Dietary Consult: Other 07/03/17 08:35 Consult to Cardiology [CONS] Routine Comment: Consulting Provider: Cardiology [place] Reason for Consult: per primary team chest pain Call Completed: Yes Discharging clinician: Clifford Godoy Anticipated date of discharge: 07/03/17 - Constitutional Vitals: Temp Pulse Resp BP Pulse Ox 98.3 F 68 17 128/94 95 07/03/17 06:28 07/03/17 06:28 07/03/17 06:28 07/03/17 06:28 07/03/17 06:28 General appearance: Present: A&O X 3, pleasant, answers questions appropriately - Head Head exam: Present: normocephalic - Eye Eye exam: Present: conjuntiva pink - ENT ENT exam: Present: mucous membranes moist - Respiratory Respiratory exam: Present: CTAB. Absent: rales, rhonchi, wheezes - Cardiovascular Cardiovascular exam: Present: RRR. Absent: systolic murmur, tachycardia - GI/Abdominal GI/Abdominal exam: Present: soft. Absent: tenderness - Extremities Exam Extremities exam: Present: warm. Absent: tenderness - Neurological Exam Neurological exam: Present: alert, oriented X3, no focal deficits - Skin Skin exam: Present: dry, warm - Patient Status Disposition: Home, Self-Care Condition: Good Functional capacity at discharge: independent ambulation Overall status at discharge: patient is progressing back to baseline - Discharge Instructions Follow Up With: Tabitha Archibald CNP [Primary Care Provider] - Additional Instructions: RISK FACTORS: STOP SMOKING: If you smoke, STOP. Smoking or tobacco use significantly increases your risk of heart disease because nicotine causes the arteries to narrow or constrict. It also causes fats to stick to the artery. Your chances of having a heart attack are greatly increased if you continue to smoke. For more information, call the education line for smoking cessation 0-353-HLZKEGX EAT A LOW FAT/CHOLESTEROL/SODIUM DIET: This diet may help reduce your chances of having a heart attack. LIFTING: Avoid lifting anything more than 10 pounds for 5-7 days Prior to straining, laughing, sneezing and/or coughing, apply manual pressure directly over insertion site. ACTIVITY: You may walk or climb stairs as tolerated You can resume sexual activity as tolerated In general, you are encouraged to engage in a minimum of 30 minutes or more of moderate intensity physical activity, such as brisk walking, daily or at least 3 -4 times weekly BATHING Do not submerge the site into water (bath tub, hot tub, swimming pool) for 1 week. This can be a source for infection into the blood stream. You may shower after 24 hours SITE CARE: After 24 hours, you may remove the dressing and leave the site open to air. Keep the site clean and dry. Clean gently and pat dry. You can expect bruising and tenderness that gradually resolve within a week or two. Return to work as instructed per your physician Resume driving as instructed per physician Keep all scheduled follow up appointments Resume medications as instructed IMPORTANT: If prescribed a Platelet Aggregation Inhibitor such as, Plavix, Brilinta or Effient: Duration of therapy is minimum one year These medications are often used in combination with Aspirin in prevention of future heart attacks Never discontinue unless consult with your Forester Aide STROKE (CVA) Risk factors for a stroke are: Age, cigarette smoking, diabetes, excessive alcohol consumption, family history, high blood pressure, overweight, physical inactivity, prior stroke, heart attack, diagnosis of carotid artery stenosis or other artery disease. Warning signs: Sudden numbness or weakness of the face, arm or leg; especially on one side of the body, sudden confusion, trouble speaking or understanding, sudden trouble seeing in one or both eyes, sudden trouble walking, dizziness, loss of balance or coordination, sudden severe headache with no cause. Call 911 or go to the Emergency Room. CONGESTIVE HEART FAILURE: If you have been diagnosed with Congestive Heart Failure (CHF) and your symptoms return, make an appointment with your physician Weigh yourself daily. Notify your physician if you have a weight gain of two or more pounds in one day or five or more pounds in one week. If you experience any difficulty breathing, please call 911 BLEEDING: Although the risk of bleeding is minimal, it can happen. If you have any bleeding from the site, apply firm pressure above the puncture site for 10-15 minutes. If the bleeding does not stop, continue manual pressure and call 911 Contact your physician if: You develop a fever greater than 101 degrees Fahrenheit Your site becomes reddened or has any drainage You have an increase in pain or burning at the site or if a large knot forms at the site. If you experience chest pain, shortness of breath, dizziness, or extreme tiredness, stop the activity and rest. Please notify your physicians office if you experience any of these symptoms and they are not relieved by rest please call 911! Do Not start Metformin until !! - Diet and Activity Activity: increase activity as tolerated Diet: diabetic diet, low fat, low cholesterol
[2017-07-03] MEDS: *HR* Ticagrelor 90 MG TABLET PO SCH (09:24)
[2017-07-03] MEDS: Gabapentin 100 MG CAPSULE PO SCH (09:25)
[2017-07-03] MEDS: Metoprolol XL (24 HR) Succ 25 MG TAB.ER.24H PO SCH ×2 (09:58→10:06)
[2017-07-03] MEDS ORDERED: *HR* Heparin 5,000 UNIT/ML VIAL SQ SCH (18:00)
--- NOTE | 2017-07-03 22:54 | Electrocardiograph Report ---
[place] [employer] Test Date: 2017-07-02 Pat Name: Ghada Mahmood Department: 104 Room: 2NE26 Gender: F Wireless Cellular Technician: : 1970 Requested By: Robert Hill Order Number: [id number] [place] MD: Skip Valiente Measurements Intervals [place] Rate: 100 P: 83 DC: 344 QRS: 85 QRSD: 105 T: -53 QT: 346 QTc: 403 Interpretive Statements ELECTRONIC ATRIAL PACEMAKER ST DEVIATION AND MODERATE T-WAVE ABNORMALITY, CONSIDER LATERAL ISCHEMIA ST DEVIATION AND MODERATE T-WAVE ABNORMALITY, CONSIDER INFERIOR ISCHEMIA WARNING: DATA QUALITY MAY AFFECT INTERPRETATION Electronically Signed On 07-03-2017 22:52:52 EDT by Skip Valiente
--- NOTE | 2017-07-12 16:12 | Invasive Diagnostic Lab Proc ---
Name: Ghada Mahmood Date of Study: 07/02/2017 Date: 1970 Ht: 66.1in Medical Record#: [id number] Age: 46 Wt: 198.42lb Gender: Female BSA: 2. Order #: [id number] BMI: 31.89 Physicians Procedure Physician: Bryanna France MD Referring MD: Referring MD: Staff Name Position Time In Stiven, Jeff RN Monitor 01:30 PM Luis Eduardo Wallace RN Racing Car Driver 01:30 PM Meagan Duran RN Racing Car Driver 01:30 PM Stephanie Santiago RT (R) Scrub 01:30 PM Indications Indication Unstable Angina Procedures Performed Procedure IV Doppler BLD Flow 1st Vessel PRQ CARD FRANCISCO STENT W/ANGIO 1 VSL MOD SED OTH PHYS/QHP 5/>YRS MOD SED OTHER PHYS/QHP EA MOD SED OTHER PHYS/QHP EA MOD SED OTHER PHYS/QHP EA MOD SED OTHER PHYS/QHP EA MOD SED OTHER PHYS/QHP EA Pre-Procedure Checklist Informed consent is complete signed and on chart. H&P is on chart. ID band is on and ID verified with patient. Patient NPO for procedure The procedure was described for the patient and questions were answered. Blood Pressure: 139/97 ECG is on chart. Plan of Care Patient will tolerate the procedure without complications. Adequate level of comfort will be maintained. Hemodynamics will remain stable Patient will recover from procedure without complications. Respiratory function will be maintained. Cardiac rhythm will remain stable. Patient temperature will be maintained. Patient and/or family have verbalized understanding of the procedure. Patient Education Chief Complaint/Reason for Test: Cardiac Cath Developmental Category: Adult (18-64 years) Developmentally Appropriate for Age: Yes Learning Barriers: None Education Needs: Procedure Education Method: Verbal Information Taught: Cardiac Cath Educational Evaluation: Able to repeat information Intravenous Access Time IV Size Location DC'd Fluid/Drip Rate Units RN 12:53 PM 18g 1 1/" Patent On Arrival Rt Antecubital Meagan Duran RN Allergies No Known Allergies DENIES Vital Signs Time BP (mmHg) HR (bpm) O2 Sat. RR (bpm) LOC 12:53 PM 139 / 97 93 97 % 18 5 = Fully awake and oriented or at pre-proc level 01:30 PM / % 5 = Fully awake and oriented or at pre-proc level 01:31 PM 134 / 94 97 92 % 01:36 PM 123 / 90 92 93 % 01:42 PM 138 / 81 77 98 % 01:47 PM 149 / 93 81 94 % 01:52 PM 146 / 88 91 92 % 01:57 PM 136 / 87 93 93 % 02:02 PM 136 / 85 89 96 % 02:06 PM 130 / 92 90 97 % 02:12 PM 136 / 87 91 96 % 02:17 PM 134 / 76 94 98 % 02:22 PM 136 / 83 96 97 % 02:27 PM 170 / 108 94 99 % 02:32 PM 134 / 83 89 94 % 02:37 PM 129 / 77 89 93 % 02:42 PM 115 / 79 90 93 % 02:47 PM 130 / 88 92 93 % 02:52 PM 128 / 82 91 93 % 02:57 PM 130 / 95 86 97 % 03:02 PM 142 / 103 86 100 % 03:07 PM 158 / 73 96 100 % 03:12 PM 180 / 122 98 96 % 03:17 PM 154 / 103 91 93 % 03:45 PM 157 / 101 84 94 % 16 5 = Fully awake and oriented or at pre-proc level Procedural Medications Time Medication Dose Units Method Given By 01:31 PM Oxygen 2 L/min nasal cannula Luis Eduardo Wallace RN 01:32 PM Versed 1 mg Intravenous Luis Eduardo Wallace RN 01:32 PM Fentanyl 50 mcg Intravenous Luis Eduardo Wallace RN 01:42 PM Lidocaine 2% 20 ml Subcutaneous Bryanna France MD 01:55 PM Heparin 500 units Intravenous Luis Eduardo Wallace RN 02:06 PM Heparin 2000 units Intravenous Luis Eduardo Wallace RN 02:10 PM Adenosine 798 ml/hr Intravenous Bryanna France MD 02:28 PM Versed 1 mg Intravenous Luis Eduardo Wallace RN 02:28 PM Fentanyl 50 mcg Intravenous Luis Eduardo Wallace RN 02:35 PM Adenosine 798 ml/hr Intravenous Bryanna France MD 02:40 PM Aggrastat Bolus: 46 ml Intravenous Luis Eduardo Wallace RN 03:03 PM Aggrastat 12.5mg/250ml 16.5 ml/hr Intravenous Luis Eduardo Wallace RN 03:10 PM Fentanyl 50 mcg Intravenous Luis Eduardo Wallace RN 03:17 PM Brilinta 180 mg Orally Luis Eduardo Wallace RN ASA Classification: CLASS II- Mild systemic disease (i.e. well-controlled diabetes, hypertension, asthma, cigarette smoking) Jairon Score Preprocedure Postprocedure Activity 2- Moves 4 extremities sustained head lift Activity 2- Moves 4 extremities sustained head lift Circulation 2- SBP +/= 20 points of pre-anesthetic level Circulation 2- SBP +/= 20 points of pre-anesthetic level Consciousness 2- Awake and alert oriented x 3 Consciousness 2- Awake and alert oriented x 3 O2 Saturation 2- Able to maintain O2 satruation of 92% on room air O2 Saturation 2- Able to maintain O2 satruation of 92% on room air Respiratory 2- Able to deep breathe and cough well Respiratory 2- Able to deep breathe and cough well Total Score 10 Total Score 10 Contrast Agent: Isovue Diagnostic Contrast: 450 ml Total Contrast: 450 ml Fluoro Dose: 1846 mGy Activated Clotting Time Time Seconds to Clot 02:06 PM 184 02:33 PM 276 Procedure Log Time Note Enter By 01:30 PM Pt arrived to laboratory aide 2 at 13:30 [facility] 01:30 PM Jeff Saleem RN Position: Monitor Time in: 13:30 [facility] 01:30 PM Luis Eduardo Wallace RN Position: Racing Car Driver Time in: 13:30 01:30 PM Meagan Duran RN Position: Racing Car Driver Time in: 13:30 mm 01:30 PM Stephanie Santiago (R) Position: Scrub Time in: 13:30 01:30 PM Patient charges- Angio tray pack, Navilyst 3mm J, Pulse Oximetry and ACIST tubing and transducer 01:30 PM Hair removed from procedure site in procedure lab using clippers. Bilateral groin prepped with Chloraprep by Stephanie Santiago (R), then patient was draped. Skin intact. mm 01:30 PM Physician arrived 13:30 01:30 PM Meet and greet completed mm 01:30 PM Sign in performed according to hospital policy. mm 01:30 PM Procedure start 13:30 mm 01:30 PM Time: 13:30 Patient comfortable and pain free: Yes mm:31 PM Time: 13:30LOC: 5 = Fully awake and oriented or at pre-proc level mm:31 PM Time: 13:31 Oxygen on at 2 L/min per nasal cannula by Luis Eduardo Wallace RN 01:31 PM CathStat 01:31 PM Vitals capture started with the following parameters, Patient=Adult, Interval=5 min, Initial Mqjibohw=921 mmHg, Deflation Rate=5 mmHg, Cuff placed on Right Arm 01:31 PM HR=97 bpm, CFIL=429/94 mmhg, SpO2=92.0 %, Comment=NSR 01:32 PM ASA Class CLASS II- Mild systemic disease (i.e. well-controlled diabetes, hypertension, asthma, cigarette smoking) [facility] :[facility] PM Time: 13:32 Versed 1 mg Intravenous Given by Luis Eduardo Wallace RN :32 PM Time: 13:32 Fentanyl 50 mcg Intravenous Given by Luis Eduardo Wallace RN 01:32 PM Clinical Presentation: Unstable angina [facility] 01:36 PM HR=92 bpm, OOHF=213/90 mmhg, SpO2=93.0 %, Comment=NSR 01:39 PM Pressure channel 1 zeroed. 01:40 PM Recorded ECG: HR=88 Condition=Condition 1 01:42 PM HR=77 bpm, UYBT=426/81 mmhg, SpO2=98.0 %, Comment=NSR 01:42 PM Time out performed according to hospital policy :42 PM Time: 13:42 20 ml Lidocaine 2% to right groin Subcutaneous Given by Bryanna France MD [email or web address] 01:43 PM Micro-Introducer Kit utilized for sheath placement [email or web address] 01:45 PM Access obtained by percutaneous puncture. 6Fr 10cm Terumo [place] sheath placed in right Femoral artery. [id number] [email or web address] 01:45 PM 5Fr FR 4 catheter inserted over the wire DN [email or web address] 01:45 PM Recorded Pressure: Ao, HR=86, Condition=Condition 1 (Aorta) Ao 114/90/102 01:46 PM RCA angiography performed in multiple views. [email or web address] 01:47 PM HR=81 bpm, UUPR=362/93 mmhg, SpO2=94.0 %, Comment=NSR 01:47 PM Catheter removed [email or web address] 01:47 PM 5Fr FL 4 catheter inserted over the wire DN [email or web address] 01:49 PM LCA angiography performed in multiple views. [email or web address] 01:49 PM Coronary Dominance: Left [email or web address] 01:52 PM HR=91 bpm, ISFV=908/88 mmhg, SpO2=92.0 %, Comment=NSR 01:54 PM Catheter removed [email or web address] 01:54 PM 6Fr FL 4 catheter inserted over the wire DN [email or web address] 01:55 PM Time: 13:55 Heparin 500 units Intravenous Given by Luis Eduardo Wallace RN 01:56 PM Recorded Pressure: Ao, HR=92, Condition=Condition 1 (Aorta) Ao 118/82/100 01:57 PM HR=93 bpm, AXPH=580/87 mmhg, SpO2=93.0 %, Comment=NSR 01:58 PM More pictures taken, engaged catheter to the LAD better. [email or web address] 02:00 PM Recorded Pressure: LV, HR=93, Condition=Condition 1 (Left Ventricle) LV 111/7/20 02:00 PM Catheter removed [email or web address] 02:00 PM 5Fr Pigtail catheter inserted over the wire [facility] [email or web address] 02:00 PM Recorded Pressure: LV, Ao, HR=93, Condition=Condition 1 (Left Ventricle) LV 119/10/13, (Aorta) Ao 133/95/113 02:01 PM Pressures taken, no LV gram performed [email or web address] 02:02 PM HR=89 bpm, EBUA=506/85 mmhg, SpO2=96.0 %, Comment=NSR 02:02 PM 6Fr XB LAD 3.5 Cordis guide catheter was used to cannulate the PCI vessel successfully. reused? No [email or web address] 02:02 PM Inflation device was opened. [email or web address] 02:05 PM [employer] FFR Wire advanced to target lesion. [email or web address] 02:05 PM Pressure channel 3 zeroed. 02:05 PM Pressure channel 1 zeroed. 02:05 PM Pressure channel 3 zeroed. 02:06 PM At 14:06 the ACT was 184 seconds. [email or web address] 02:06 PM Time: 14:06 Heparin 2000 units Intravenous Given by Luis Eduardo Wallace RN 02:06 PM HR=90 bpm, MBSG=431/92 mmhg, SpO2=97.0 %, Comment=NSR 02:08 PM Pressure channel 3 equalized to channel 1. 02:08 PM Pressure channel 3 equalized to channel 1. 02:08 PM Pressure channel 3 equalized to channel 1. 02:08 PM Pressure channel 3 equalized to channel 1. 02:10 PM Time: 14:10 Adenosine 798 ml/hr administered Intravenous by Bryanna France MD [email or web address] 02:10 PM FFR: Value=0.90, Condition=Condition 1, Device=VOLCANO PRIME WIRE 02:10 PM Recorded Pressure: Ao, Ao, FFR=0.90, HR=94, Condition=Condition 1 (Aorta) Ao 124/91/107, (Aorta) Ao 120/80/97 02:12 PM HR=91 bpm, RRKC=309/87 mmhg, SpO2=96.0 %, Comment=NSR 02:12 PM Recorded Pressure: Ao, Ao, FFR=0.80, HR=94, Condition=Condition 1 (Aorta) Ao 110/82/96, (Aorta) Ao 99/63/78 02:12 PM FFR: Value=0.80, Condition=Condition 1, Device=VOLCANO PRIME WIRE 02:13 PM Adenosine stopped [email or web address] 02:14 PM FFR Measurement: 0.80 [email or web address] 02:16 PM Recorded Pressure: Ao, Ao, FFR=0.84, HR=82, Condition=Condition 1 (Aorta) Ao 123/87/103, (Aorta) Ao 120/69/89 02:16 PM FFR: Value=0.84, Condition=Condition 1, Device=VOLCANO PRIME WIRE 02:16 PM Restart adenosine @ 798 ml/hr [email or web address] 02:17 PM HR=94 bpm, BZIW=956/76 mmhg, SpO2=98.0 %, Comment=NSR 02:18 PM Recorded Pressure: Ao, Ao, FFR=0.85, HR=90, Condition=Condition 1 (Aorta) Ao 124/85/103, (Aorta) Ao 122/68/90 02:18 PM FFR: Value=0.85, Condition=Condition 1, Device=VOLCANO PRIME WIRE 02:20 PM FFR Measurement: 0.84 [email or web address] 02:20 PM [ Start FFR sample ] 02:22 PM HR=96 bpm, LIVS=596/83 mmhg, SpO2=97.0 %, Comment=NSR 02:27 PM Flow Wire/Catheter removed intact [email or web address] 02:27 PM HR=94 bpm, DDRY=325/108 mmhg, SpO2=99.0 %, Comment=NSR 02:28 PM .014 [employer] [place] 190cm guide wire across target lesion- successful. reused? No [email or web address] 02:28 PM Asist FFR Catheter advanced to target lesion. [email or web address] 02:28 PM Time: 14:28 Versed 1 mg Intravenous Given by Luis Eduardo Wallace RN [email or web address] 02:28 PM Time: 14:28 Fentanyl 50 mcg Intravenous Given by Luis Eduardo Wallace RN [email or web address] 02:32 PM HR=89 bpm, XBTH=817/83 mmhg, SpO2=94.0 %, Comment=NSR 02:34 PM At 14:33 the ACT was 276 seconds. [email or web address] 02:35 PM Time: 14:35 Adenosine 798 ml/hr administered Intravenous by Bryanna France MD [email or web address] 02:37 PM HR=89 bpm, FOIC=176/77 mmhg, SpO2=93.0 %, Comment=NSR 02:37 PM Adenosine off [email or web address] 02:38 PM Flow Wire/Catheter removed intact [email or web address] 02:38 PM FFR Measurement: 0.76 [email or web address] 02:39 PM 2.0 mm x 12 mm Emerge Monorail balloon across target lesion- successful. reused? No [email or web address] 02:40 PM Lesion found in Proximal LAD. Pre Stenosis: 70 Pre TOAN Flow: 3: Complete and Brisk Flow/Perfusion [email or web address] 02:40 PM Proximal Left Anterior Descending Coronary Artery with 70% stenosis. If graft is supplying this territory, 0 % stenosis. [email or web address] 02:40 PM Time: 14:40 Aggrastat Bolus: 46 ml Intravenous Given by Luis Eduardo Wallace RN Méndez pump [email or web address] 02:41 PM Time: 14:41 Aggrastat 12.5mg/250ml 16.5 ml/hr Intravenous Given by Luis Eduardo Wallace RN Méndez pump [email or web address] 02:42 PM HR=90 bpm, EWZM=514/79 mmhg, SpO2=93.0 %, Comment=NSR 02:43 PM Recorded Pressure: Ao, HR=89, Condition=Condition 1 (Aorta) Ao 101/78/90 02:44 PM Balloon inflated @ 6 gary for 9 seconds [email or web address] 02:45 PM Recorded Pressure: Ao, HR=88, Condition=Condition 1 (Aorta) Ao 117/90/104 02:45 PM Balloon inflated @ 6 gary for 9 seconds [email or web address] 02:47 PM HR=92 bpm, AFOE=245/88 mmhg, SpO2=93.0 %, Comment=NSR 02:47 PM Balloon catheter removed intact. [email or web address] 02:48 PM 3.5mm x 16mm Synergy drug-eluting stent across target lesion- successful Lot #[id number] [email or web address] 02:52 PM HR=91 bpm, RYXO=213/82 mmhg, SpO2=93.0 %, Comment=NSR 02:53 PM .014 [employer] [place] 190cm guide wire across target lesion- successful. Second wire down Circ. [email or web address] 02:57 PM HR=86 bpm, JZMX=007/95 mmhg, SpO2=97.0 %, Comment=NSR 02:59 PM Stent deployed @ 9 gary for 11 seconds [email or web address] 02:59 PM Stent balloon reinflated @ 12 gary for 12 seconds [email or web address] 03:00 PM Stent delivery system removed intact. [email or web address] 03:02 PM HR=86 bpm, JBQO=900/103 mmhg, ZaA5=441.0 %, Comment=NSR 03:06 PM Guide catheter removed intact. [email or web address] 03:06 PM Guide wire removed intact. [email or web address] 03:06 PM Right Groin shot obtained. contrast injected. [email or web address] 03:07 PM HR=96 bpm, WLZO=361/73 mmhg, AuV5=315.0 %, Comment=NSR 03:07 PM Procedure completed at 15:07 [email or web address] 03:07 PM Did you address TOAN flow and Dominance? Yes [email or web address] 03:07 PM Sign out completed: Radiation Dose 1846 mGy Fluoro Time: 16.5 Isovue 370 - 200ml contrast 450 ml given by Bryanna France MD. Complications: NoneCardiac Rehab Consult needed: YesConfirmed administered medications: Yes [email or web address] 03:08 PM Isovue 370 - 200ml,3 Bottle(s) used. [email or web address] 03:08 PM Arterial sheath pulled, Angio-seal closure device used and was Successful [id number] S/N. [email or web address] 03:08 PM Estimated Blood Loss: less than 20cc [email or web address] 03:08 PM Post ECG NSR [email or web address] 03:08 PM Post Blood Pressure 158/73 [email or web address] 03:09 PM 15:08 Post Pulses Bilateral DP & PT 2+ [email or web address] 03:09 PM Information taught Cardiac Cath, PCI, and Angioseal jcallihan 03:10 PM Education needs Procedure, Plan of Care, and Responsibilities of Patient in Care [email or web address] 03:10 PM Learning barriers :None [email or web address] 03:10 PM Education Methods Verbal [email or web address] 03:10 PM Education evaluation Able to repeat information [email or web address] 03:10 PM Time: 15:10 Fentanyl 50 mcg Intravenous Given by Luis Eduardo Wallace RN [email or web address] 03:12 PM Site status No bleeding/hematoma - Rt Groin as reported by Stephanie Santiago RT (R) at 15:11 [email or web address] 03:12 PM Opsite applied [email or web address] 03:12 PM Plavix, Effient or Brilinta given Yes [email or web address] 03:12 PM HR=98 bpm, AUZD=599/122 mmhg, SpO2=96.0 %, Comment=NSR 03:13 PM Family placed in consult room. [email or web address] 03:13 PM Complications: None [email or web address] 03:13 PM Fluoro Time: 16.5 [email or web address] 03:13 PM Isovue 370 - 200ml contrast 450 ml given by Bryanna France. [email or web address] 03:13 PM Radiation Dose 1846 mGy jcallihan 03:15 PM PCI Status Urgent [email or web address] 03:15 PM PCI Indication: PCI for high risk Non-STEMI or unstable angina [email or web address] 03:17 PM HR=91 bpm, MHDP=292/103 mmhg, SpO2=93.0 %, Comment=NSR 03:17 PM Time: 15:17 Brilinta 180 mg Orally Given by Luis Eduardo Wallace RN [email or web address] 03:17 PM Patient out of room: 15:17 [email or web address] 03:38 PM patient voided large amount to bedpan mprater 03:53 PM report called to Rupert on 2NE mprater 03:54 PM pateint transfered to 2NE mprater Equipment Used Size Length Diameter Item Category Angio tray pack Other Micro-Introducer Kit Other Terumo [place] sheath Guideliner Guide catheter Inflation kit Other Prime Wire FFR Wire Diagnostic [employer] Guidewire Emerge PTCA Dilatation Catheter Monorail Balloon Promus Element Plus Rx Drug Eluting Stent [employer] Guidewire Méndez pump Other Angio-seal Evolution Sealant ACT Other ACT Other Complications Complication None None Hemodynamics Pressures Site Systolic/A Wave Diastolic/V Wave Mean AO 114 90 102 AO 118 82 100 LV 111 7 20 LV 119 10 13 AO 133 95 113 AO 124 91 107 AO 120 80 97 AO 110 82 96 AO 99 63 78 AO 123 87 103 AO 120 69 89 AO 124 85 103 AO 122 68 90 AO 101 78 90 AO 117 90 104 Post Procedure Information Blood Pressure: 158/73 mmHg Rhythm: NSR Post procedural instructions were given Closure Device Time Device Success/Fail 07/02/2017 3:10:00 PM Angio-Seal VIP Successful Site Checks Time Location Status Staff Sheath In? Note 03:11 PM Rt Groin No bleeding/hematoma Stephanie Santiago RT (R) 03:45 PM Rt Groin No bleeding/ No Hematoma Ame Murray RN Pulses Time Site Pre-Procedure Post-Procedure Note Bilateral DP & PT 2+ 3:08:00 PM Bilateral DP & PT 2+ 07/02/2017 3:45:00 PM Bilateral DP & PT 2+ Updated by Jeff Saleem RN on 07/12/2017 4:06:17 PM electronically signed on 07/12/2017 4:07:01 PM with status of Final
== END 2017-07-03 13:18 | disposition home or self-care (01) | DRG 247 ==
LOC: 3ANU 08:41 → EMEROO 08:41 → 3ANU 13:02 → 2NENU 15:49 → SUATTDRO 16:39
PROVIDERS: ADMIT Internal Medicine Cardiovascular Disease; ATTEND Internal Medicine